=== PATIENT | male | born 1980 | race Caucasian/White ===

== ENCOUNTER 2020-02-20 13:03 | Emergency (ER) | payer MEDICARE, MEDICAID, SELFPAY ==
[2020-02-20 13:09] VITALS: BP 131/76; PULSE 65; RESP 18; TEMP 36.6; O2SAT 100; BMI 21.7
--- NOTE | 2020-02-20 13:28 | CT_ITS ---
WS: [id number] CT ABDOMEN AND PELVIS NONCONTRAST HISTORY: R sided abdominal pain; dysuria TECHNIQUE: Imaging performed through the abdomen and pelvis. Coronal and sagittal reformats are submi tted. All CT scans at [facility] use at least one of these dose optimization techniques: automated exposure control; mA and/or kV adjustment per patient size (includes targeted exams where d ose is matched to clinical indication); or iterative reconstruction. DLP: 566.75 mGy.cm COMPARISON: 12/10/2015 Lower thorax: Lung bases are clear. No hiatal hernia. Liver: Normal, no mass or intrahepatic dilatation. Gallbladder: Unremarkable. Pancreas: Normal. Spleen: Small granulomata. Adrenal glands: Calcification associated with the RIGHT adrenal gland. Similar to the prior study. Right kidney: Normal size with no stones, masses or atrophy. Left kidney: Normal size with no stones, mass or atrophy. Abdominal aorta and IVC are unremarkable. No free fluid, intraperitoneal air or significant lymphadenopathy. GI tract: Normal appendix. No GI tract obstruction. There are a few diverticula in the distal colon b ut no acute inflammation. Abdominal wall: Intact. Pelvis: Normal. No inguinal hernia or adenopathy. No free fluid. Osseous structures: Mild LEFT convex curvature lumbar spine. CT/CT kidney stone [id number] IMPRESSION: 1. No evidence for appendicitis. 2. No renal stone or obstruction. 3. No inguinal hernia.
--- NOTE | 2020-02-20 13:38 | ED_ITS ---
HPI - Male Genitourinary General: Chief complaint: Urogenital-Male Stated complaint: urination pain Time Seen by Provider: 02/20/20 13:04 PFSH ED PFSH: Family History (Updated 01/04/20 @ 16:58 by Sophie Lynn LPN) Father No problems noted. Mother Diabetes Social History (Updated 01/04/20 @ 16:59 by Sophie Lynn LPN) Smoking and tobacco status: current every day smoker Alcohol intake: current Alcohol intake frequency: 0-2 Drinks per Day Marital status: Single Current occupational status: disabled History of recent travel: No Course Vital Signs: Vital signs: Vital Signs Temperature 97.9 F 02/20/20 13:09 Pulse Rate 60 02/20/20 15:02 Respiratory Rate 14 02/20/20 15:02 Blood Pressure 132/89 02/20/20 15:02 Pulse Oximetry 99 02/20/20 15:02 MDM - Male Lab Data: Labs: Lab Results 02/20/20 02/20/20 02/20/20 Range/Units 13:35 13:35 13:35 WBC 5.9 (4.0-10.0) 10^3/ uL RBC 4.85 (4.1-5.3) 10^6/u L Hgb 14.4 (11.7-16.6) g/dL Hct 43.7 (42.0-52.0) % MCV 90.1 (80-94) fL MCH 29.7 (28.0-34.0) pg MCHC 33.0 (30.0-36.0) g/dL RDW 11.9 L (12.1-15.1) % Plt Count 267 (130-400) 10^3/c mm MPV 9.5 (7.4-10.4) fL Neut % (Auto) 44.2 % Lymph % (Auto) 42.2 % Collin % (Auto) 6.6 % Eos % (Auto) 5.9 % Baso % (Auto) 0.8 % Neut # (Auto) 2.6 (1.8-7.7) 10^3/u L Lymph # (Auto) 2.5 (0.8-4.8) 10^3/u L Collin # (Auto) 0.4 (0.2-0.9) 10^3/u L Eos # (Auto) 0.4 (0.0-0.8) 10^3/u L Baso # (Auto) 0.1 (0.0-0.1) 10^3/u L Nucleated RBC % (a uto) 0 % Nucleated RBCs # 0.0 /100WBC Sodium 138 (136-145) mmol/L Potassium 3.9 (3.5-5.1) mmol/L Chloride 98 (98-107) mmol/L Carbon Dioxide 30 H (22-29) mmol/L Anion Gap 13.9 (5-19) BUN 9 (6-20) mg/dL Creatinine 1.0 (0.7-1.2) mg/dL GFR Calculation 83.6 L (90-130) mL/min Glucose 117 H (65-115) mg/dL Calculated Osmolal ity 283 L (285-295) mOsm/k g Calcium 10.4 (8.5-10.5) mg/dL Total Bilirubin 0.2 (0.15-1.2) mg/dL AST 17 (0-40) U/L ALT 11 (0-41) U/L Alkaline Phosphata se 74 (40-130) IU/L Total Protein 8.1 (6.6-8.7) g/dL Albumin 4.6 (3.5-5.2) g/dL Globulin 3.5 (1.3-4.6) g/dL Urine Color Yellow (Yellow) Urine Appearance Clear (CLEAR) Urine pH 7 (5-7) Ur Specific Gravit y 1.010 (1.005-1.030) Urine Protein Neg (Negative) Urine Glucose (UA) Norm (Normal) Urine Ketones Negative (Negative) Urine Blood Neg (Negative) Urine Nitrate Negative (Negative) Urine Bilirubin Neg (NEGATIVE) Urine Urobilinogen Norm (Negative) mg/dL Ur Leukocyte Sivan ase Negative (Negative) Imaging Data: CT ab/pel renal: Radiologist's impression: [address] [address] [address] Scan Report Signed Patient: Hussein Kim Unit #: [id number] : 1980 Age/Sex: 39 / M ADM Date: 02/20/20 Loc: ER Room/Bed: Attending Dr: Ordering Provider/Ordering MD: Oralia Castaneda Date of Service: 02/20/20 Procedure(s): CT kidney stone [id number] Accession Number(s): [id number] Report Number: [id number] WS: [id number] CT ABDOMEN AND PELVIS NONCONTRAST HISTORY: R sided abdominal pain; dysuria TECHNIQUE: Imaging performed through the abdomen and pelvis. Coronal and sagittal reformats are submitted. All CT scans at [facility] use at least one of these dose optimization techniques: automated exposure control; mA and/or kV adjustment per patient size (includes targeted exams where dose is matched to clinical indication); or iterative reconstruction. DLP: 566.75 mGy.cm COMPARISON: 12/10/2015 Lower thorax: Lung bases are clear. No hiatal hernia. Liver: Normal, no mass or intrahepatic dilatation. Gallbladder: Unremarkable. Pancreas: Normal. Spleen: Small granulomata. Adrenal glands: Calcification associated with the RIGHT adrenal gland. Similar to the prior study. Right kidney: Normal size with no stones, masses or atrophy. Left kidney: Normal size with no stones, mass or atrophy. Abdominal aorta and IVC are unremarkable. No free fluid, intraperitoneal air or significant lymphadenopathy. GI tract: Normal appendix. No GI tract obstruction. There are a few diverticula in the distal colon but no acute inflammation. Abdominal wall: Intact. Pelvis: Normal. No inguinal hernia or adenopathy. No free fluid. Osseous structures: Mild LEFT convex curvature lumbar spine. CT/CT kidney stone [id number] IMPRESSION: 1. No evidence for appendicitis. 2. No renal stone or obstruction. 3. No inguinal hernia. Dictated By: Verito Neely DO Signed By: Verito Neely DO Signed Date/Time: 02/20/20 1403 DD/ 1358 Discharge Plan Discharge Patient Disposition: Home, Self-Care Clinical Impression: Right-sided abdominal pain of unknown cause Condition: Stable Prescriptions: New tramadol 50 mg tablet 50 mg PO Q6H PRN (Reason: pain) Qty: 14 RF: 0 No Action ropinirole 1 mg Tablet 1 mg PO TID RF: 0 Celexa 40 mg Tablet 40 mg PO DAILY RF: 0 ibuprofen 800 mg Tablet 800 mg PO TID PRN (Reason: unknown) RF: 0 Flomax 0.4 mg Capsule 0.4 mg PO DAILY RF: 0 buspirone 15 mg Tablet 15 mg PO BID RF: 0 testosterone 1.62 % (20.25 mg/1.25 gram) Gel In Packet See Rx Instructions .ROUTE .COMPLEX RF: 0 Discharge Orders: Discharge Order (Routine); Ordered 02/20/20 Ordered By: Oralia Castaneda Referrals: Shiela,Sebastian, LAUNDRY TECHNICIAN [Primary Care Provider] - Discharge Diet: Usual diet Discharge Activity: Increase activity as tolerated Patient Instructions: Tramadol (By mouth), Abdominal Pain (ED) Discharge Date/Time: 02/20/20 15:38 Coding Level of Care Code ED Certified Meeting Professional for Ben Mcclure
[2020-02-20 13:47] LABS: Add Urine Microscopic? NO
[2020-02-20 13:49] LABS: Basophils # 0.1 10^3/uL (0.0-0.1); Basophils % 0.8 %; Eosinophils # 0.4 10^3/uL (0.0-0.8); Eosinophils % 5.9 %; Hematocrit 43.7 % (42.0-52.0); Hemoglobin 14.4 g/dL (11.7-16.6); Lymphocytes # 2.5 10^3/uL (0.8-4.8); Lymphocytes % 42.2 %; Mean Corpuscular Hemoglobin 29.7 pg (28.0-34.0); Mean Corpuscular Volume 90.1 fL (80-94); Mean Platelet Volume 9.5 fL (7.4-10.4); Monocytes # 0.4 10^3/uL (0.2-0.9); Monocytes % 6.6 %; Neutrophils # 2.6 10^3/uL (1.8-7.7); Neutrophils % 44.2 %; Nucleated Red Blood Cells % 0 %; Platelet Count 267 10^3/cmm (130-400); Red Blood Count 4.85 10^6/uL (4.1-5.3); Red Cell Distribution Width 11.9 % (12.1-15.1); White Blood Count 5.9 10^3/uL (4.0-10.0)
[2020-02-20 13:59] LABS: Alanine Aminotransferase 11 U/L (0-41); Albumin Level 4.6 g/dL (3.5-5.2); Alkaline Phosphatase 74 IU/L (40-130); Anion Gap 13.9 (5-19); Aspartate Amino Transferase 17 U/L (0-40); Blood Urea Nitrogen 9 mg/dL (6-20); Calcium 10.4 mg/dL (8.5-10.5); Carbon Dioxide 30 mmol/L (22-29); Chloride 98 mmol/L (98-107); Globulin 3.5 g/dL (1.3-4.6); Glomerular Filtration Rate 83.6 mL/min (90-130); Glucose 117 mg/dL (65-115); Osmolality Calculated 283 mOsm/kg (285-295); Potassium 3.9 mmol/L (3.5-5.1); Sodium 138 mmol/L (136-145); Total Bilirubin 0.2 mg/dL (0.15-1.2); Total Protein 8.1 g/dL (6.6-8.7)
[2020-02-20 14:37] LABS: Urine Appearance Clear (CLEAR); Urine Color Yellow (Yellow)
[2020-02-20 14:38] LABS: Bilirubin Urine Neg (NEGATIVE); Blood Urine Neg (Negative); Glucose Urine UA Norm (Normal); Ketones Urine Negative (Negative); Leukocyte Esterase Urine Negative (Negative); Nitrate Urine Negative (Negative); Protein Urine Neg (Negative); Urobilinogen Urine Norm (Negative); pH Urine 7 (5-7)
[2020-02-20 14:59] VITALS: RESP 14
[2020-02-20] MEDS: morphine 4 mg/mL SDV 1 mL IM (14:59)
[2020-02-20] MEDS: ondansetron 2 mg/ML SDV 2 mL 4 MG IM (15:00)
[2020-02-20 15:02] VITALS: BP 132/89; PULSE 60; RESP 14; O2SAT 99
--- NOTE | 2020-02-20 16:14 | ED_ITS ---
HPI - Abdominal Pain General: Chief Complaint: Urogenital-Male Stated Complaint: urination pain Time Seen by Provider: 02/20/20 13:04 Source: patient Mode of arrival: ambulatory Limitations: no limitations History of Present Illness: HPI narrative: Patient is a 39-year-old male with a history of Klinefelter syndrome here for complaints of right-sided lower abdominal pain as well as painful urination over the past few days. Patient states he has an extensive history of kidney and ureter stones requiring 5 separate surgeries. Patient has not been vomiting. He reports normal bowel movements. He has not been running fevers. MD elicited complaint: abdominal pain Pertinent past history: kidney stones Onset (ago): day(s) Pain Consistency: constant Location: RLQ Radiation: none Migration to: no migration Exacerbating factors: other (urinating ) Relieving factors: nothing Associated Symptoms: Reports no associated symptoms and dysuria; Denies chills, diarrhea, fever(s), heartburn, hematuria, nausea, syncope and vomiting Review of Systems General: Reports: 10 or more systems reviewed and unremarkable except in HPI and below Const: Denies: fever, chills, body aches, fatigue or malaise Eyes: Denies: change in vision or blurry vision Card: Denies: chest pain, palpitations, irregular heart rhythm, lightheadedness, syncope or shortness of breath on exertion Resp: Denies: shortness of breath, productive cough or pain on inspiration GI: Reports: abdominal pain; Denies: nausea, vomiting, heartburn/indigestion or diarrhea : Reports: painful urination and other (bilateral testicles removed); Denies: flank pain, difficulty urinating, urinary frequency, urinary urgency, urinary hesitancy, urinary dribbling, difficulty starting urination, change in urine stream, decreased urine ouput, urinary incontinence, blood in urine, genital lesion or penile discharge Musc: Denies: neck pain, back pain or joint pain Skin/Breast: Denies: rash PFSH ED PFSH: Family History (Updated 01/04/20 @ 16:58 by Sophie Lynn LPN) Father No problems noted. Mother Diabetes Social History (Updated 01/04/20 @ 16:59 by Sophie Lynn LPN) Smoking and tobacco status: current every day smoker Alcohol intake: current Alcohol intake frequency: 0-2 Drinks per Day Marital status: Single Current occupational status: disabled History of recent travel: No Physical Exam Const: COMMON NORMALS: no apparent distress, average body habitus, oriented x3, no limitations, healthy appearing, alert and well nourished Resp: COMMON NORMALS: normal respiratory effort and clear to auscultation bilaterally AUSCULTATION: clear to auscultation bilaterally Cardio: COMMON NORMALS: regular rate and regular rhythm RATE: regular rate RHYTHM: regular rhythm GI: COMMON NORMALS: normal to inspection, nondistended, normoactive bowel sounds, soft to palpation, no hepatosplenomegaly and no masses PALPATION: Yes soft, Yes tender Details: LLQ and RLQ and Yes no hepatosplenomegaly : COMMON NORMALS: Yes no CVA tenderness BLADDER/KIDNEY EXAM: Yes no CVA tenderness Back/Pelvis: COMMON NORMALS: no CVA tenderness Neuro: COMMON NORMALS: oriented x3 SENSORIUM/ORIENTATION: Yes alert Skin: COMMON NORMALS: no rashes or lesions noted GENERAL SKIN EXAM: no rashes or lesions noted Course Vital Signs: Vital signs: Vital Signs Temperature 97.9 F 02/20/20 13:09 Pulse Rate 60 02/20/20 15:02 Respiratory Rate 14 02/20/20 15:02 Blood Pressure 132/89 02/20/20 15:02 Pulse Oximetry 99 02/20/20 15:02 MDM - Abdominal Pain MDM Narrative: Medical decision making narrative: Patient has no evidence for a ureter stone or other abnormalities in his lower abdomen on CT findings. Patient's UA is clean. Remainder of labs are non-concerning at this time. Patient's vitals are perfect. His pain has improved with medications given here. We will treat patient's pain at home and recommend he follow-up with PCP. Return to ED precautions given. Lab Data: Labs: Lab Results 02/20/20 02/20/20 02/20/20 Range/Units 13:35 13:35 13:35 WBC 5.9 (4.0-10.0) 10^3/ uL RBC 4.85 (4.1-5.3) 10^6/u L Hgb 14.4 (11.7-16.6) g/dL Hct 43.7 (42.0-52.0) % MCV 90.1 (80-94) fL MCH 29.7 (28.0-34.0) pg MCHC 33.0 (30.0-36.0) g/dL RDW 11.9 L (12.1-15.1) % Plt Count 267 (130-400) 10^3/c mm MPV 9.5 (7.4-10.4) fL Neut % (Auto) 44.2 % Lymph % (Auto) 42.2 % Aurora % (Auto) 6.6 % Eos % (Auto) 5.9 % Baso % (Auto) 0.8 % Neut # (Auto) 2.6 (1.8-7.7) 10^3/u L Lymph # (Auto) 2.5 (0.8-4.8) 10^3/u L Aurora # (Auto) 0.4 (0.2-0.9) 10^3/u L Eos # (Auto) 0.4 (0.0-0.8) 10^3/u L Baso # (Auto) 0.1 (0.0-0.1) 10^3/u L Nucleated RBC % (a uto) 0 % Nucleated RBCs # 0.0 /100WBC Sodium 138 (136-145) mmol/L Potassium 3.9 (3.5-5.1) mmol/L Chloride 98 (98-107) mmol/L Carbon Dioxide 30 H (22-29) mmol/L Anion Gap 13.9 (5-19) BUN 9 (6-20) mg/dL Creatinine 1.0 (0.7-1.2) mg/dL GFR Calculation 83.6 L (90-130) mL/min Glucose 117 H (65-115) mg/dL Calculated Osmolal ity 283 L (285-295) mOsm/k g Calcium 10.4 (8.5-10.5) mg/dL Total Bilirubin 0.2 (0.15-1.2) mg/dL AST 17 (0-40) U/L ALT 11 (0-41) U/L Alkaline Phosphata se 74 (40-130) IU/L Total Protein 8.1 (6.6-8.7) g/dL Albumin 4.6 (3.5-5.2) g/dL Globulin 3.5 (1.3-4.6) g/dL Urine Color Yellow (Yellow) Urine Appearance Clear (CLEAR) Urine pH 7 (5-7) Ur Specific Gravit y 1.010 (1.005-1.030) Urine Protein Neg (Negative) Urine Glucose (UA) Norm (Normal) Urine Ketones Negative (Negative) Urine Blood Neg (Negative) Urine Nitrate Negative (Negative) Urine Bilirubin Neg (NEGATIVE) Urine Urobilinogen Norm (Negative) mg/dL Ur Leukocyte Sivan ase Negative (Negative) Imaging Data ^: CT ab/pel renal: Radiologist's impression: [address] [address] [address] Scan Report Signed Patient: Hussein Kim Unit #: [id number] : 1980 Age/Sex: 39 / M ADM Date: 02/20/20 Loc: ER Room/Bed: Attending Dr: Ordering Provider/Ordering MD: Oralia Castaneda Date of Service: 02/20/20 Procedure(s): CT kidney stone [id number] Accession Number(s): [id number] Report Number: [id number] WS: [id number] CT ABDOMEN AND PELVIS NONCONTRAST HISTORY: R sided abdominal pain; dysuria TECHNIQUE: Imaging performed through the abdomen and pelvis. Coronal and sagittal reformats are submitted. All CT scans at [facility] use at least one of these dose optimization techniques: automated exposure control; mA and/or kV adjustment per patient size (includes targeted exams where dose is matched to clinical indication); or iterative reconstruction. DLP: 566.75 mGy.cm COMPARISON: 12/10/2015 Lower thorax: Lung bases are clear. No hiatal hernia. Liver: Normal, no mass or intrahepatic dilatation. Gallbladder: Unremarkable. Pancreas: Normal. Spleen: Small granulomata. Adrenal glands: Calcification associated with the RIGHT adrenal gland. Similar to the prior study. Right kidney: Normal size with no stones, masses or atrophy. Left kidney: Normal size with no stones, mass or atrophy. Abdominal aorta and IVC are unremarkable. No free fluid, intraperitoneal air or significant lymphadenopathy. GI tract: Normal appendix. No GI tract obstruction. There are a few diverticula in the distal colon but no acute inflammation. Abdominal wall: Intact. Pelvis: Normal. No inguinal hernia or adenopathy. No free fluid. Osseous structures: Mild LEFT convex curvature lumbar spine. CT/CT kidney stone [id number] IMPRESSION: 1. No evidence for appendicitis. 2. No renal stone or obstruction. 3. No inguinal hernia. Dictated By: Verito Neely DO Signed By: Verito Neely DO Signed Date/Time: 02/20/20 1403 DD/ 1358 Discharge Plan Discharge Patient Disposition: Home, Self-Care Clinical Impression: Right-sided abdominal pain of unknown cause Condition: Stable Prescriptions: New tramadol 50 mg tablet 50 mg PO Q6H PRN (Reason: pain) Qty: 14 RF: 0 No Action ropinirole 1 mg Tablet 1 mg PO TID RF: 0 Celexa 40 mg Tablet 40 mg PO DAILY RF: 0 ibuprofen 800 mg Tablet 800 mg PO TID PRN (Reason: unknown) RF: 0 Flomax 0.4 mg Capsule 0.4 mg PO DAILY RF: 0 buspirone 15 mg Tablet 15 mg PO BID RF: 0 testosterone 1.62 % (20.25 mg/1.25 gram) Gel In Packet See Rx Instructions .ROUTE .COMPLEX RF: 0 Discharge Orders: Discharge Order (Routine); Ordered 02/20/20 Ordered By: Oralia Castaneda Referrals: Romulo Kuo CEMENT CAR DUMPER [Primary Care Provider] - Discharge Diet: Usual diet Discharge Activity: Increase activity as tolerated Patient Instructions: Tramadol (By mouth), Abdominal Pain (ED) Discharge Date/Time: 02/20/20 15:38 Coding Level of Care Code ED General Internist And Physician Leader for Chg Fwd Exam Detailed
== END 2020-02-20 15:38 | disposition home or self-care (01) ==
PROVIDERS: Emergency Provider Physician Assistant; Family Provider Nurse Practitioner Family; PCP Nurse Practitioner Family
DX: R10.31 Right lower quadrant pain (principal); Z83.3 Family history of diabetes mellitus; F17.210 Nicotine dependence, cigarettes, uncomplicated
CPT/HCPCS: 12345; 36415; 74176; 80053; 81003; 85025; 96372; 99281; 99283; J2270; J2405

== ENCOUNTER 2020-05-29 18:02 | Emergency (ER) | payer MEDICAID, SELFPAY ==
[2020-05-29 18:09] VITALS: BP 120/82; PULSE 74; RESP 16; TEMP 36.4; O2SAT 99; BMI 22.1
--- NOTE | 2020-05-29 19:38 | W.ED.SKABFB ---
HPI - Skin/Abscess/Foreign Bdy General: Chief complaint: Skin/Abscess/Foreign Body Stated complaint: groin abscess Time Seen by Provider: 05/29/20 19:29 History of Present Illness: HPI narrative: Patient comes to the ED with possible abscess in left groin. Approximately 3 days ago patient noticed having a small red bump on left side of groin with a nicole. He says nicole went away and then over the last couple days is just gotten tender and more red and swollen. He has used warm compresses to help abscess but it has not improved. He rates the pain about a 2 out of 10 when it is not being touched but when abscess area has been touched it is an 8 out of 10. Denies any fevers, chills, genital lesions, genital discharge, hematuria, dysuria, diarrhea, constipation, blood in stool, abdominal pain. Associated symptoms: Deny chills, fever(s), nausea or vomiting Review of Systems Const: Denies: fever(s), chills or fatigue Eyes: Denies: change in vision or eye discomfort ENMT: Denies: throat pain, odynophagia, nasal discharge or nasal congestion Card: Denies: chest pain, palpitations, edema, swelling of feet/ankles, dyspnea on exertion or orthopnea Resp: Denies: dyspnea, productive cough or non-productive cough GI: Denies: abdominal pain, nausea, vomiting, diarrhea, constipation or hematochezia : Denies: flank pain, difficulty urinating, dysuria or hematuria Musc: Denies: neck pain, back pain or extremity swelling Skin/Breast: Reports: new lesions (possible abscess on left groin); Denies: rash Neuro: Denies: headache(s), numbness in extremities or weakness in extremities PFS ED PFSH: Medical History Hypogonadism Family History Father No problems noted. Mother Diabetes Social History Smoking and tobacco status: current every day smoker Alcohol intake: current Alcohol intake frequency: 0-2 Drinks per Day Substance/Drug Use: current Substance/Drug use frequency: daily Substance/Drug use type: Marijuana Marital status: Single Current occupational status: disabled History of recent travel: No Physical Exam Const: COMMON NORMALS: no acute distress, patient oriented x3, healthy appearing and alert GENERAL APPEARANCE: cooperative and comfortable HENMT: COMMON NORMALS: normocephalic HEAD & SCALP: normocephalic MOUTH: Normal oral and palatal mucosa present THROAT: posterior oropharynx normal and uvula midline Neck/C-Spine: COMMON NORMALS: supple GENERAL: Yes normal visual inspection Resp: COMMON NORMALS: normal respiratory effort, No retractions, No use of accessory muscles and clear to auscultation bilaterally AUSCULTATION: clear to auscultation bilaterally Cardio: COMMON NORMALS: regular rate, regular rhythm, S1 normal heart sound present, S2 normal heart sound present, No gallops present (Cardio), No clicks present (Cardio), No murmurs present (Cardio) and Peripheral pulses 2+ throughout RATE: regular rate RHYTHM: regular rhythm HEART SOUNDS: S1 normal heart sound present and S2 normal heart sound present PERIPHERAL PULSES: Peripheral pulses 2+ throughout GI: COMMON NORMALS: Normal to inspection, nondistended, normoactive bowel sounds present, Soft to palpation, non-tender and no masses PALPATION: Yes Soft to palpation : COMMON NORMALS: Yes no CVA tenderness BLADDER/KIDNEY EXAM: Yes no CVA tenderness Back/Pelvis: COMMON NORMALS: no CVA tenderness Neuro: COMMON NORMALS: patient oriented x3 and moves all extremities SENSORIUM/ORIENTATION: Yes alert Skin: NARRATIVE SKIN EXAM: Patient has 1 cm abscess that is tender and fluctuant upon palpation. It has erythema and warmth. Bedside ultrasound was performed and pocket of fluid to drain was identified. Procedures Abscess I/D Site: lower extremity (Left groin.) Side (if applicable): left Sedation/analgesia: none Local Anesthetic: lidocaine 1% and with epi Amount of anesthesia used (mL): 10 Technique: incised with #11 blade Amount of fluid expressed (mL): 2 (Purulent drainage) Irrigation: No Packing used?: none Course Vital Signs: Vital signs: Vital Signs Temperature 97.6 F 05/29/20 18:09 Pulse Rate 74 05/29/20 18:09 Respiratory Rate 16 05/29/20 18:09 Blood Pressure 120/82 05/29/20 18:09 Pulse Oximetry 99 05/29/20 18:09 MDM - Skin/Abscess/Foreign Bdy MDM Narrative: Medical decision making narrative: Patient is a 39-year-old male comes to the ED with an abscess in the left groin. Physical exam showed a fluctuant 1 cm abscess that is tender upon palpation and has erythema and warmth. 1% lidocaine with epi used as local. Abscess was incised and drained with approximately 2 mL of purulent drainage removed and culture of purulent drainage was sent to lab. Patient given a dose of clindamycin while here on the unit and sent home with a prescription for clindamycin. He was told to follow-up with his PCP in 5 to 7 days for reevaluation. Return to ED if symptoms worsen. Patient understood and agreed with plan. Discharge Plan Discharge Patient Disposition: Home, Self-Care Clinical Impression: Abscess Condition: Stable Prescriptions: New clindamycin HCl 150 mg capsule 300 mg PO QID 7 Days Qty: 56 RF: 0 No Action Celexa 40 mg tablet 40 mg PO DAILY Qty: 30 RF: 3 ropinirole 1 mg Tablet 1 mg PO TID RF: 0 ibuprofen 800 mg Tablet 800 mg PO TID PRN (Reason: unknown) RF: 0 tamsulosin [Flomax] 0.4 mg Capsule 0.4 mg PO DAILY RF: 0 buspirone 15 mg Tablet 15 mg PO BID RF: 0 testosterone 1.62 % (20.25 mg/1.25 gram) Gel In Packet See Rx Instructions .ROUTE .COMPLEX RF: 0 Discharge Orders: Discharge Order (Routine); Ordered 05/29/20 Ordered By: Bo Cordoba Referrals: Shiela Sebastian APN [Primary Care Provider] - Discharge Diet: Regular Discharge Activity: Resume usual activity Patient Instructions: Abscess Incision and Drainage (ED), Abscess (ED) Activity Restrictions/Additional Instructions: Follow-up with medical provider as directed in 5-7 days. Take medications as prescribed. Return to the ER or your medical provider if condition worsens. Please read and understand discharge instructions. If any questions, please ask. Discharge Date/Time: 05/29/20 21:28 Coding Level of Care Code ED Mental Health Case Manager for Ben Fwryder Exam Comprehensive
[2020-05-29] MEDS: HYDROcodone-acetaminophen 7.5-325 mg Tablet 1 TAB PO (20:21)
[2020-05-29] MEDS: clindamycin 150 mg Capsule 300 MG PO (21:21)
== END 2020-05-29 21:28 | disposition home or self-care (01) ==
PROVIDERS: Emergency Provider Physician Assistant; PCP Nurse Practitioner Family
DX: L02.214 Cutaneous abscess of groin (principal); F17.210 Nicotine dependence, cigarettes, uncomplicated
CPT/HCPCS: 10060; 12345; 87070; 87075; 87205; 99282; 99283

== ENCOUNTER → 2020-06-06 15:37 | Outpatient (BNVA) | payer MEDICARE, SELFPAY | PROVIDERS: PCP Nurse Practitioner Family; Visit Provider Internal Medicine | DX: Z90.79 Acquired absence of other genital organ(s) (principal); Z09 Encounter for follow-up examination after completed treatment for conditions other than malignant neoplasm; Q98.0 Klinefelter syndrome karyotype 47, XXY | CPT/HCPCS: 84403 ==

== ENCOUNTER 2020-07-24 15:18 | Emergency (ER) | payer MEDICARE, MEDICAID, SELFPAY ==
[2020-07-24 15:26] VITALS: BP 132/77; PULSE 67; RESP 16; TEMP 36.4; O2SAT 98; BMI 22.8
--- NOTE | 2020-07-24 15:51 | W.ED.ABDPA2 ---
HPI - Abdominal Pain General: Chief Complaint: Abdominal Pain Stated Complaint: abd pain Time Seen by Provider: 07/24/20 15:32 History of Present Illness: HPI narrative: 39-year-old male presents complaining of 4 days of abdominal pain. He was seen previously in April for similar symptoms and had MRI that was negative. He has a history of nephrolithiasis he is not had any hematuria. He had 1 or 2 episodes of loose stools. Is not had any hematuria has not had any hematemesis coffee-ground emesis denies any respiratory symptoms or fever. MD elicited complaint: abdominal pain Pertinent past history: none Onset (ago): day(s) (4) Pain Consistency: intermittent Location: RLQ Severity: mild Quality: cramping Radiation: none Migration to: no migration Exacerbating factors: nothing Relieving factors: nothing Associated Symptoms: Reports GI cramping; Denies anorexia, belching, bloating, change in bowel habits, change in stool character, chills, coffee ground emesis, constipation, diarrhea, dyspepsia, dysuria, excessive flatus, fever(s), heartburn, hematochezia, hematuria, hematemesis, fecal incontinence, loose stools, melena, nausea, poor appetite and vomiting Treatments prior to arrival: other Review of Systems Const: Denies: fever(s) or chills ENMT: Denies: throat pain, ear or mastoid pain, nasal discharge or nasal congestion Card: Denies: chest pain, edema, dyspnea on exertion or orthopnea Resp: Denies: dyspnea, productive cough or non-productive cough GI: Reports: GI cramping; Denies: nausea, vomiting, hematemesis, coffee ground emesis, heartburn, diarrhea, constipation, bloating, belching, excessive flatus, fecal incontinence, change in bowel habits, change in stool character, hematochezia or melena : Denies: dysuria or hematuria Skin/Breast: Denies: rash or pruritus PFSH ED PFSH: Surgical History (Updated 06/07/20 @ 13:06 by Josiah Schreiber MD) History of orchiectomy, bilateral Family History Father No problems noted. Mother Diabetes Social History (Updated 07/24/20 @ 15:31 by Nikolai Elian, RN) Smoking and tobacco status: current every day smoker Alcohol intake: current Alcohol intake frequency: few times a month Substance/Drug Use: current Substance/Drug use frequency: daily Substance/Drug use type: Marijuana Marital status: Single Current occupational status: disabled History of recent travel: No Physical Exam Const: COMMON NORMALS: no acute distress GENERAL APPEARANCE: cooperative and comfortable ORIENTATION/CONSCIOUSNESS: Yes awake, Yes oriented to person, Yes oriented to place and Yes oriented to time HENMT: COMMON NORMALS: normocephalic, atraumatic and hearing grossly normal bilaterally HEAD & SCALP: normocephalic and atraumatic Eye: COMMON NORMALS: Equal, round and reactive pupils present, EOMs intact bilaterally, conjunctivae normal and no scleral icterus CONJUNCTIVA: Yes conjunctivae normal PUPIL: Yes Equal, round and reactive pupils present Neck/C-Spine: COMMON NORMALS: full ROM, no lymphadenopathy, supple and no JVD Lymph: LYMPHATIC: no lymphadenopathy noted and no lymphedema noted Resp: COMMON NORMALS: normal respiratory effort, No retractions, No use of accessory muscles and clear to auscultation bilaterally AUSCULTATION: clear to auscultation bilaterally Cardio: COMMON NORMALS: no JVD, regular rate, regular rhythm and No murmurs present (Cardio) RATE: regular rate RHYTHM: regular rhythm GI: COMMON NORMALS: Soft to palpation and No hepatosplenomegaly present AUSCULTATION: Yes normoactive bowel sounds PALPATION: Yes Soft to palpation, No Tenderness to palpation present (GI), No Guarding due to palpation present (GI) and Yes No hepatosplenomegaly present Extremity: COMMON NORMALS: normal to inspection, capillary refill normal, no clubbing, cyanosis or edema, no calf tenderness and no pedal edema Neuro: SENSORIUM/ORIENTATION: Yes oriented to person, Yes oriented to place and Yes oriented to time Skin: COMMON NORMALS: no rashes or lesions noted GENERAL SKIN EXAM: no rashes or lesions noted Course Vital Signs: Vital signs: Vital Signs Temperature 97.5 F L 07/24/20 15:26 Pulse Rate 67 07/24/20 15:26 Respiratory Rate 16 07/24/20 15:26 Blood Pressure 132/77 07/24/20 15:26 Pulse Oximetry 98 07/24/20 15:26 MDM - Abdominal Pain MDM Narrative: Medical decision making narrative: White count is normal his exam is very benign. Remainder of his labs are unremarkable. Clear liquid diet 24 to 40 hours advance as tolerates have recurrence or changes symptoms return. Lab Data: Labs: Lab Results 07/24/20 07/24/20 07/24/20 Range/Units 15:17 15:47 15:47 WBC 7.8 (4.0-10.0) 10^3/ uL RBC 4.70 (4.1-5.3) 10^6/u L Hgb 14.0 (11.7-16.6) g/dL Hct 42.4 (42.0-52.0) % MCV 90.2 (80-94) fL MCH 29.8 (28.0-34.0) pg MCHC 33.0 (30.0-36.0) g/dL RDW 11.9 L (12.1-15.1) % Plt Count 265 (130-400) 10^3/c mm MPV 9.5 (7.4-10.4) fL Neut % (Auto) 50.2 % Lymph % (Auto) 38.0 % [place] % (Auto) 6.4 % Eos % (Auto) 4.8 % Baso % (Auto) 0.5 % Neut # (Auto) 3.89 (1.8-7.7) 10^3/u L Lymph # (Auto) 3.0 (0.8-4.8) 10^3/u L [place] # (Auto) 0.5 (0.2-0.9) 10^3/u L Eos # (Auto) 0.4 (0.0-0.8) 10^3/u L Baso # (Auto) 0.0 (0.0-0.1) 10^3/u L Nucleated RBC % (a uto) 0 % Nucleated RBCs # 0.0 /100WBC Sodium 139 (136-145) mmol/L Potassium 4.2 (3.5-5.1) mmol/L Chloride 102 (98-107) mmol/L Carbon Dioxide 28 (22-29) mmol/L Anion Gap 13.2 (5-19) BUN 12 (6-20) mg/dL Creatinine 0.9 (0.7-1.2) mg/dL GFR Calculation 94.4 (90-130) mL/min Glucose 91 (65-115) mg/dL Calculated Osmolal ity 284 L (285-295) mOsm/k g Calcium 9.6 (8.5-10.5) mg/dL Total Bilirubin 0.3 (0.15-1.2) mg/dL AST 19 (0-40) U/L ALT 13 (0-41) U/L Alkaline Phosphata se 80 (40-130) IU/L Total Protein 7.8 (6.6-8.7) g/dL Albumin 4.4 (3.5-5.2) g/dL Globulin 3.4 (1.3-4.6) g/dL Lipase 50 (13-60) U/L Urine Color Yellow (Yellow) Urine Appearance Clear (CLEAR) Urine pH 7 (5-7) Ur Specific Gravit y 1.015 (1.005-1.030) Urine Protein Neg (Negative) Urine Glucose (UA) Norm (Normal) Urine Ketones Negative (Negative) Urine Blood Neg (Negative) Urine Nitrate Negative (Negative) Urine Bilirubin Neg (Negative) Urine Urobilinogen Neg (Negative) mg/dL Ur Leukocyte Sivan ase Negative (Negative) Discharge Plan Discharge Patient Disposition: Home Clinical Impression: Abdominal pain, Klinefelter syndrome karyotype 47, xxy Condition: Stable Prescriptions: No Action Celexa 40 mg tablet 40 mg PO DAILY Qty: 30 RF: 3 ropinirole 1 mg Tablet 1 mg PO TID RF: 0 tamsulosin [Flomax] 0.4 mg Capsule 0.4 mg PO DAILY RF: 0 buspirone 15 mg Tablet 15 mg PO BID RF: 0 testosterone 1.62 % (20.25 mg/1.25 gram) Gel In Packet See Rx Instructions .ROUTE .COMPLEX RF: 0 ibuprofen 800 mg tablet 800 mg PO TID PRN (Reason: unknown) Qty: 90 RF: 8 Discharge Orders: Discharge Order (Routine); Ordered 07/24/20 Ordered By: Andrew Galarza Referrals: Shiela Sebastian APN [Primary Care Provider] - Discharge Diet: Clear Liquid Discharge Activity: Increase activity as tolerated Activity Restrictions/Additional Instructions: Clear liquid diet x48 hours and advance as tolerated. If symptoms worsen return Discharge Date/Time: 07/24/20 16:23 Coding Level of Care Code ED Video Presentation Operator for Ben Mcclure
[2020-07-24 15:52] LABS: Add Urine Microscopic? NO
[2020-07-24 15:55] LABS: Basophils % 0.5 %; Eosinophils # 0.4 10^3/uL (0.0-0.8); Eosinophils % 4.8 %; Hematocrit 42.4 % (42.0-52.0); Mean Corpuscular Hemoglobin 29.8 pg (28.0-34.0); Mean Corpuscular Volume 90.2 fL (80-94); Mean Platelet Volume 9.5 fL (7.4-10.4); Monocytes # 0.5 10^3/uL (0.2-0.9); Monocytes % 6.4 %; Neutrophils # 3.89 10^3/uL (1.8-7.7); Neutrophils % 50.2 %; Nucleated Red Blood Cells % 0 %; Platelet Count 265 10^3/cmm (130-400); Red Cell Distribution Width 11.9 % (12.1-15.1); White Blood Count 7.8 10^3/uL (4.0-10.0)
[2020-07-24 15:59] LABS: Blood Urine Neg (Negative); Glucose Urine UA Norm (Normal); Ketones Urine Negative (Negative); Protein Urine Neg (Negative); Specific Gravity, Urine 1.015 (1.005-1.030); Urine Appearance Clear (CLEAR); Urine Color Yellow (Yellow); pH Urine 7 (5-7)
[2020-07-24 16:00] LABS: Bilirubin Urine Neg (Negative); Leukocyte Esterase Urine Negative (Negative); Nitrate Urine Negative (Negative); Urobilinogen Urine Neg (Negative)
[2020-07-24 16:09] LABS: Alanine Aminotransferase 13 U/L (0-41); Albumin Level 4.4 g/dL (3.5-5.2); Alkaline Phosphatase 80 IU/L (40-130); Aspartate Amino Transferase 19 U/L (0-40); Blood Urea Nitrogen 12 mg/dL (6-20); Calcium 9.6 mg/dL (8.5-10.5); Carbon Dioxide 28 mmol/L (22-29); Chloride 102 mmol/L (98-107); Globulin 3.4 g/dL (1.3-4.6); Glomerular Filtration Rate 94.4 mL/min (90-130); Glucose 91 mg/dL (65-115); Lipase 50 U/L (13-60); Osmolality Calculated 284 mOsm/kg (285-295); Sodium 139 mmol/L (136-145); Total Bilirubin 0.3 mg/dL (0.15-1.2); Total Protein 7.8 g/dL (6.6-8.7)
[2020-07-24 16:13] LABS: Anion Gap 13.2 (5-19)
[2020-07-24 16:14] LABS: Potassium 4.2 mmol/L (3.5-5.1)
[2020-07-24 16:23] VITALS: BP 140/70; PULSE 75; RESP 16; O2SAT 98
== END 2020-07-24 16:23 | disposition home or self-care (01) ==
PROVIDERS: Emergency Provider Family Medicine; PCP Nurse Practitioner Family
DX: R10.9 Unspecified abdominal pain (principal); Q98.0 Klinefelter syndrome karyotype 47, XXY; F17.210 Nicotine dependence, cigarettes, uncomplicated
CPT/HCPCS: 12345; 80053; 81003; 83690; 85025; 99283

== ENCOUNTER 2021-01-08 10:10 | Outpatient (CLI) | payer MEDICARE, MEDICAID, SELFPAY ==
--- NOTE | 2021-01-08 10:22 | US_ITS ---
WS: [id number] BILATERAL DIGITAL DIAGNOSTIC MAMMOGRAM MAMMOGRAPHY WITH CAD CLINICAL INFORMATION: MASTODYNIA;BREAST TENDERNESS HISTORY: COMPARISON: None. TECHNIQUE: Bilateral CC, MLO, and ML views. FINDINGS: Palpable marker left breast. Scattered fibroglandular densities bilaterally. No underlying mammographic abnormalities in the area of palpable concern. Normal-appearing subareolar breast tissue. Ultrasound is pending. ULTRASOUND BREAST LEFT TECHNIQUE: Ultrasound left breast focused area of concern. CLINICAL INFORMATION: MASTODYNIA;BREAST TENDERNESS COMPARISON: None. FINDINGS: Ultrasound breast left. Ultrasound left breast in the area of palpable concern left nipple. Normal sh adowing subareolar breast tissue consistent with gynecomastia. No abnormal cystic or solid lesion tar get for biopsy. No suspicious abnormalities. Comparison views of the left breast are similar in yary bales. US/US breast BI limited* [id number] IMPRESSION: BI-RADS: 2-Benign FOLLOW UP: 1 Year Follow-up
--- NOTE | 2021-01-08 10:31 | MM_ITS ---
WS: [id number] BILATERAL DIGITAL DIAGNOSTIC MAMMOGRAM MAMMOGRAPHY WITH CAD CLINICAL INFORMATION: MASTODYNIA;BREAST TENDERNESS HISTORY: COMPARISON: None. TECHNIQUE: Bilateral CC, MLO, and ML views. FINDINGS: Palpable marker left breast. Scattered fibroglandular densities bilaterally. No underlying mammographic abnormalities in the area of palpable concern. Normal-appearing subareolar breast tissue. Ultrasound is pending. ULTRASOUND BREAST LEFT TECHNIQUE: Ultrasound left breast focused area of concern. CLINICAL INFORMATION: MASTODYNIA;BREAST TENDERNESS COMPARISON: None. FINDINGS: Ultrasound breast left. Ultrasound left breast in the area of palpable concern left nipple. Normal sh adowing subareolar breast tissue consistent with gynecomastia. No abnormal cystic or solid lesion tar get for biopsy. No suspicious abnormalities. Comparison views of the left breast are similar in [place]. MM/[place] [id number] IMPRESSION: BI-RADS: 2-Benign FOLLOW UP: 1 Year Follow-up
== END 2021-01-08 10:11 | disposition home or self-care (01) ==
LOC: RADSHAW 10:15
PROVIDERS: PCP Nurse Practitioner Family; Visit Provider Internal Medicine
DX: N64.4 Mastodynia (principal)
CPT/HCPCS: 76642; 77066

== ENCOUNTER 2021-04-30 17:57 | Emergency (ER) | payer MEDICARE, MEDICAID, SELFPAY ==
[2021-04-30] VITALS (7 sets, daily range): BP systolic 103–136; BP diastolic 67–79; PULSE 51–65; RESP 14–18; TEMP 36.6; O2SAT 96–100; BMI 23.6
[2021-04-30 18:45] LABS: Add Urine Microscopic? NO; Charge for UA Resulting for Rev
--- NOTE | 2021-04-30 18:49 | CTR_ITS ---
PROCEDURE INFORMATION: Exam: CT Abdomen And Pelvis With Contrast Exam date and time: 04/30/2021 6:49 PM Age: 40 years old Clinical indication: Abdominal pain; Localized; Lower; Prior surgery; Surgery type: Colon, testicles; Additional info: Abd pain TECHNIQUE: Imaging protocol: Computed tomography of the abdomen and pelvis with contrast. Radiation optimization: All CT scans at this facility use at least one of these dose optimization techniques: automated exposure control; mA and/or kV adjustment per patient size (includes targeted exams where dose is matched to clinical indication); or iterative reconstruction. Contrast material: OMNI 300; Contrast volume: 95 ml; Contrast route: INTRAVENOUS (IV); COMPARISON: 1. CT abdomen pelvis wo con [id number] 12/10/2015 11:[address] kidney stone [id number] 02/20/2020 1:47 PM RADIATION DOSE METRICS: Total DLP (mGy-cm): 1049.26 FINDINGS: Lungs: Small pulmonary nodules at the lung bases are not significantly changed from 02/20/2020. No further follow-up is necessary. Liver: Normal. No mass. Gallbladder and bile ducts: The gallbladder is normal. Pancreas: The pancreas is normal. Spleen: The spleen demonstrates punctate calcifications, consistent with remote granulomatous organism exposure. Adrenal glands: Nonspecific calcifications in the right adrenal gland not significantly changed. Kidneys and ureters: The kidneys are normal. There is no evidence of hydronephrosis. There is no evidence of renal or ureteral calcifications. Stomach and bowel: There is no evidence of colitis/diverticulitis. Appendix: A normal appendix is identified. Intraperitoneal space: Unremarkable. No free air. No significant fluid collection. Vasculature: Unremarkable. No abdominal aortic aneurysm. Lymph nodes: There is no evidence of lymphadenopathy. Urinary bladder: Unremarkable as visualized. Reproductive: Unremarkable as visualized. Bones/joints: Bone window Soft tissues: Unremarkable. CT/CT abdomen pelvis w con* [id number] IMPRESSION: No acute findings. Radiation Dose CTDIVOL = (mGy): DLP = 1049.26 (mGy-cm)
--- NOTE | 2021-04-30 18:57 | ED_ITS ---
HPI - Abdominal Pain General: Chief Complaint: Abdominal Pain Stated Complaint: Stomach Pain/Pain when Peeing Time Seen by Provider: 04/30/21 18:34 Source: patient Mode of arrival: ambulatory Limitations: no limitations History of Present Illness: HPI narrative: Who is a history of Klinefelter syndrome states been having some suprapubic pain some flank pain over the last 2 days. States pain is sharp in nature and rates an 8 out of 10. He states he is also had a history of kidney stones this feels similar. He has had both of his testicle removed in the past. He has had some dysuria and he states it hurts to defecate as well. Associated Symptoms: Denies chills, diarrhea, dysuria, fever(s), nausea and vomiting Review of Systems Const: Denies: fever(s), chills, body aches or change in appetite Eyes: Denies: blurry vision or eye discomfort ENMT: Denies: throat pain or dental pain Card: Denies: chest pain Resp: Denies: dyspnea GI: Denies: abdominal pain, nausea, vomiting or diarrhea : Denies: dysuria Musc: Denies: neck pain or back pain Skin/Breast: Denies: rash Neuro: Denies: headache(s) Psych: Denies: depression Raffaele/Lymph: Denies: easy bruising All/Imm: Denies: urticaria PFSH ED PFSH: Surgical History History of orchiectomy, bilateral Family History Father No problems noted. Mother Diabetes Social History Smoking and tobacco status: current every day smoker Alcohol intake: current Alcohol intake frequency: few times a month Marital status: Single Current occupational status: disabled History of recent travel: No Physical Exam Const: COMMON NORMALS: no acute distress, patient oriented x3 and healthy appearing HENMT: COMMON NORMALS: normocephalic and atraumatic HEAD & SCALP: normocephalic and atraumatic Eye: COMMON NORMALS: Equal, round and reactive pupils present and EOMs intact bilaterally PUPIL: Yes Equal, round and reactive pupils present Neck/C-Spine: COMMON NORMALS: full ROM and supple Chest: COMMONS NORMALS: normal inspection of the chest and normal palpation of entire chest wall Resp: COMMON NORMALS: normal respiratory effort, No retractions, No use of accessory muscles and clear to auscultation bilaterally AUSCULTATION: clear to auscultation bilaterally Cardio: COMMON NORMALS: regular rate, regular rhythm and No murmurs present (Cardio) RATE: regular rate RHYTHM: regular rhythm GI: COMMON NORMALS: Normal to inspection, nondistended, normoactive bowel sounds present, Soft to palpation, non-tender and no masses PALPATION: Yes Soft to palpation OTHER: Slight suprapubic tenderness : OTHER: no hernia noted he has bilateral testicles removed Extremity: COMMON NORMALS: normal to inspection and full ROM Neuro: COMMON NORMALS: patient oriented x3, moves all extremities and no focal motor deficits Psych: COMMON NORMALS: mental status grossly normal, Normal thought process present and cooperative THOUGHT PROCESS: Normal thought process present Skin: COMMON NORMALS: no rashes or lesions noted and no wounds GENERAL SKIN EXAM: no rashes or lesions noted Course Vital Signs: Vital signs: Vital Signs Temperature 97.9 F 04/30/21 18:06 Pulse Rate 58 L 04/30/21 20:13 Respiratory Rate 14 04/30/21 20:13 Blood Pressure 103/67 04/30/21 20:13 Pulse Oximetry 97 04/30/21 20:13 MDM - Abdominal Pain MDM Narrative: Medical decision making narrative: Patient presents here with abdominal pain. CT scan here is normal. Patient's blood work and urinalysis is normal as well. He has no signs of appendicitis. His abdominal exam at discharge is benign and he is pain-free. He is stable for discharge and is to follow-up his PCP and return if worsening. Lab Data: Labs: Lab Results 04/30/21 04/30/21 04/30/21 Range/Units 18:22 19:20 19:20 WBC 7.1 (4.0-10.0) 10^3/ uL RBC 4.25 (4.1-5.3) 10^6/u L Hgb 12.8 (11.7-16.6) g/dL Hct 39.1 L (42.0-52.0) % MCV 92.0 (80-94) fL MCH 30.1 (28.0-34.0) pg MCHC 32.7 (30.0-36.0) g/dL RDW 12.4 (12.1-15.1) % Plt Count 224 (130-400) 10^3/c mm MPV 9.1 (7.4-10.4) fL Neut % (Auto) 47.3 % Lymph % (Auto) 39.8 % Burnett % (Auto) 7.7 % Eos % (Auto) 4.2 % Baso % (Auto) 0.6 % Neut # (Auto) 3.38 (1.8-7.7) 10^3/u L Lymph # (Auto) 2.8 (0.8-4.8) 10^3/u L Burnett # (Auto) 0.6 (0.2-0.9) 10^3/u L Eos # (Auto) 0.3 (0.0-0.8) 10^3/u L Baso # (Auto) 0.0 (0.0-0.1) 10^3/u L Nucleated RBC % (a uto) 0 % Nucleated RBCs # 0.0 /100WBC Sodium 136 (136-145) mmol/L Potassium 4.0 (3.5-5.1) mmol/L Chloride 101 (98-107) mmol/L Carbon Dioxide 27 (22-29) mmol/L Anion Gap 12.0 (5-19) BUN 10 (6-20) mg/dL Creatinine 0.9 (0.7-1.2) mg/dL GFR Calculation 93.9 (90-130) mL/min Glucose 89 (65-115) mg/dL Calculated Osmolal ity 281 L (285-295) mOsm/k g Calcium 8.5 (8.5-10.5) mg/dL Total Bilirubin 0.2 (0.15-1.2) mg/dL AST 12 (0-40) U/L ALT 6 (0-41) U/L Alkaline Phosphata se 67 (40-130) IU/L Total Protein 6.8 (6.6-8.7) g/dL Albumin 3.9 (3.5-5.2) g/dL Globulin 2.9 (1.3-4.6) g/dL Lipase 43 (13-60) U/L Urine Color Yellow (Yellow) Urine Appearance Clear (CLEAR) Urine pH 5 (5-7) Ur Specific Gravit y 1.030 (1.005-1.030) Urine Protein Neg (Negative) Urine Glucose (UA) Norm (Normal) Urine Ketones Negative (Negative) Urine Blood Neg (Negative) Urine Nitrate Negative (Negative) Urine Bilirubin Neg (Negative) Urine Urobilinogen Norm (Negative) mg/dL Ur Leukocyte Sivan ase Negative (Negative) Imaging Data ^: CT Abd/Pel: Attestation: I personally reviewed and interpreted this imaging study as follo ws: Radiologist's impression: [employer] [address] [place] [id number] Scan Report Signed Patient: Hussein Kim Unit #: [id number] : 1980 Age/Sex: 40 / M ADM Date: 04/30/21 Loc: ER Room/Bed: Attending Dr: Ordering Provider/Ordering MD: Criselda Lira MD Date of Service: 04/30/21 Procedure(s): CT abdomen pelvis w con* [id number] Accession Number(s): [id number] Report Number: [id number] PROCEDURE INFORMATION: Exam: CT Abdomen And Pelvis With Contrast Exam date and time: 04/30/2021 6:49 PM Age: 40 years old Clinical indication: Abdominal pain; Localized; Lower; Prior surgery; Surgery type: Colon, testicles; Additional info: Abd pain TECHNIQUE: Imaging protocol: Computed tomography of the abdomen and pelvis with contrast. Radiation optimization: All CT scans at this facility use at least one of these dose optimization techniques: automated exposure control; mA and/or kV adjustment per patient size (includes targeted exams where dose is matched to clinical indication); or iterative reconstruction. Contrast material: OMNI 300; Contrast volume: 95 ml; Contrast route: INTRAVENOUS (IV); COMPARISON: 1. CT abdomen pelvis wo con [id number] 12/10/2015 11:[address] kidney stone [id number] 02/20/2020 1:47 PM RADIATION DOSE METRICS: Total DLP (mGy-cm): 1049.26 FINDINGS: Lungs: Small pulmonary nodules at the lung bases are not significantly changed from 02/20/2020. No further follow-up is necessary. Liver: Normal. No mass. Gallbladder and bile ducts: The gallbladder is normal. Pancreas: The pancreas is normal. Spleen: The spleen demonstrates punctate calcifications, consistent with remote granulomatous organism exposure. Adrenal glands: Nonspecific calcifications in the right adrenal gland not significantly changed. Kidneys and ureters: The kidneys are normal. There is no evidence of hydronephrosis. There is no evidence of renal or ureteral calcifications. Stomach and bowel: There is no evidence of colitis/diverticulitis. Appendix: A normal appendix is identified. Intraperitoneal space: Unremarkable. No free air. No significant fluid collection. Vasculature: Unremarkable. No abdominal aortic aneurysm. Lymph nodes: There is no evidence of lymphadenopathy. Urinary bladder: Unremarkable as visualized. Reproductive: Unremarkable as visualized. Bones/joints: Bone window Soft tissues: Unremarkable. CT/CT abdomen pelvis w con* [id number] IMPRESSION: No acute findings. Discharge Plan Discharge Patient Disposition: Home Clinical Impression: Abdominal pain Qualifiers: Abdominal location: generalized Qualified Code(s): R10.84 - Generalized abdominal pain Condition: Stable Prescriptions: New hydrocodone-acetaminophen 5-325 mg tablet 1 tab PO Q6H PRN (Reason: pain) Qty: 14 RF: 0 ondansetron 4 mg tablet,disintegrating 4 mg PO Q6H PRN (Reason: nausea and vomiting) Qty: 14 RF: 0 No Action pantoprazole 40 mg tablet,delayed release (DR/EC) 40 mg PO QAM Qty: 90 RF: 3 Celexa 40 mg tablet 40 mg PO DAILY Qty: 30 RF: 3 testosterone [AndroGel] 20.25 mg/1.25 gram (1.62 %) gel in metered-dose pump 1 pump topical .AT BEDTIME Qty: 75 RF: 3 ropinirole 1 mg Tablet 1 mg PO TID RF: 0 buspirone 15 mg Tablet 15 mg PO BID RF: 0 testosterone 1.62 % (20.25 mg/1.25 gram) Gel In Packet See Rx Instructions .ROUTE .COMPLEX RF: 0 ibuprofen 800 mg tablet 800 mg PO TID PRN (Reason: unknown) Qty: 90 RF: 8 tamsulosin [Flomax] 0.4 mg capsule 0.4 mg PO DAILY Qty: 90 RF: 3 Discharge Orders: Discharge ED (Routine); Ordered 04/30/21 Ordered By: Criselda Lira Referrals: Josiah Schreiber MD [Primary Care Provider] - 1-3 days Discharge Diet: Advance as tolerated Discharge Activity: Resume usual activity Patient Instructions: Abdominal Pain (ED), Opioid Safety Coding Level of Care Code ED Violent Crimes Detective for Chg Fwd Exam Comprehensive
[2021-04-30] MEDS: iohexol 300 mg/mL 100 mL Btl IV (19:07)
[2021-04-30] MEDS: ondansetron 2 mg/ML SDV 2 mL 4 MG IVP (19:18)
[2021-04-30] MEDS: HYDROmorphone 1 mg/mL INJ 1 mL IVP ×2 (19:18→20:10)
[2021-04-30 19:24] LABS: Urine Appearance Clear (CLEAR); Urine Color Yellow (Yellow); pH Urine 5 (5-7)
[2021-04-30 19:25] LABS: Bilirubin Urine Neg (Negative); Blood Urine Neg (Negative); Glucose Urine UA Norm (Normal); Ketones Urine Negative (Negative); Leukocyte Esterase Urine Negative (Negative); Nitrate Urine Negative (Negative); Protein Urine Neg (Negative); Urobilinogen Urine Norm (Negative)
[2021-04-30 19:36] LABS: Basophils % 0.6 %; Eosinophils # 0.3 10^3/uL (0.0-0.8); Eosinophils % 4.2 %; Hematocrit 39.1 % (42.0-52.0); Hemoglobin 12.8 g/dL (11.7-16.6); Lymphocytes # 2.8 10^3/uL (0.8-4.8); Lymphocytes % 39.8 %; Mean Corpuscular HGB Conc 32.7 g/dL (30.0-36.0); Mean Corpuscular Hemoglobin 30.1 pg (28.0-34.0); Mean Platelet Volume 9.1 fL (7.4-10.4); Monocytes # 0.6 10^3/uL (0.2-0.9); Monocytes % 7.7 %; Neutrophils # 3.38 10^3/uL (1.8-7.7); Neutrophils % 47.3 %; Nucleated Red Blood Cells % 0 %; Platelet Count 224 10^3/cmm (130-400); Red Blood Count 4.25 10^6/uL (4.1-5.3); Red Cell Distribution Width 12.4 % (12.1-15.1); White Blood Count 7.1 10^3/uL (4.0-10.0)
[2021-04-30 20:03] LABS: Alanine Aminotransferase 6 U/L (0-41); Albumin Level 3.9 g/dL (3.5-5.2); Alkaline Phosphatase 67 IU/L (40-130); Aspartate Amino Transferase 12 U/L (0-40); Blood Urea Nitrogen 10 mg/dL (6-20); Calcium 8.5 mg/dL (8.5-10.5); Carbon Dioxide 27 mmol/L (22-29); Chloride 101 mmol/L (98-107); Globulin 2.9 g/dL (1.3-4.6); Glomerular Filtration Rate 93.9 mL/min (90-130); Glucose 89 mg/dL (65-115); Lipase 43 U/L (13-60); Osmolality Calculated 281 mOsm/kg (285-295); Sodium 136 mmol/L (136-145); Total Bilirubin 0.2 mg/dL (0.15-1.2); Total Protein 6.8 g/dL (6.6-8.7)
== END 2021-04-30 21:14 | disposition home or self-care (01) ==
PROVIDERS: Emergency Provider Emergency Medicine; PCP Internal Medicine
DX: R10.84 Generalized abdominal pain (principal); F17.210 Nicotine dependence, cigarettes, uncomplicated
CPT/HCPCS: 74177; 80053; 81003; 83690; 85025; 96361; 96374; 96376; 99284; J1170; J2405; Q9967

== ENCOUNTER → 2021-05-03 10:48 | Outpatient (BNVA) | payer MEDICARE, MEDICAID, SELFPAY | PROVIDERS: PCP Internal Medicine; Visit Provider Nurse Practitioner Family | DX: R30.0 Dysuria (principal) | CPT/HCPCS: G0103 ==

== ENCOUNTER → 2021-06-24 07:55 | Outpatient (BNVA) | payer MEDICARE, MEDICAID, SELFPAY | PROVIDERS: PCP Internal Medicine; Visit Provider Urology | DX: R30.0 Dysuria (principal); N20.9 Urinary calculus, unspecified | CPT/HCPCS: 81003 ==

== ENCOUNTER 2021-08-13 15:17 | Emergency (ER) | payer MEDICARE, MEDICAID, SELFPAY ==
[2021-08-13 15:27] VITALS: BP 86/49; PULSE 79; RESP 18; TEMP 36.8; O2SAT 98; BMI 22.1
--- NOTE | 2021-08-13 16:35 | ED_ITS ---
HPI - Animal Bite General: Chief Complaint: Animal Bite Stated Complaint: RLE INJURY, N/V, PAIN: BIT BY HOG Time Seen by Provider: 08/13/21 16:35 History of Present Illness: HPI narrative: Mr. Ty is a 40-year-old gentleman with history of Klinefelter syndrome who presents emergency department due to animal related injury. He was at his baseline health and reportedly [place] a farm trying to get a rooster when a dog attacked him. He immediately pain associated with lacerations and abrasions which was moderate in intensity and worse with palpation on the lower extremities. Additionally had nausea vomiting. Unsure of last tetanus. No other new specific changes in health, exacerbating, or alleviating factors. Upon clarification of the attacking animal it reportedly is a farm raised domesticated pig making it low risk for rabies carrying. Review of Systems General: Reports: 10 or more systems reviewed and unremarkable except in HPI and below PFSH ED PFSH: Medical History Dysuria Urolithiasis Surgical History H/O lithotripsy History of orchiectomy, bilateral Family History Father No problems noted. Mother , at ag 70 Diabetes Social History Alcohol intake: current Alcohol intake frequency: few times a month Marital status: Single Current occupational status: disabled History of recent travel: No Physical Exam Narrative: EXAM NARRATIVE: GENERAL/CONSTITUTIONAL - well-appearing. Anxious, uncomfortable Eyes - PERRL, no conjunctival injection ENMT - Atraumatic external nose and ears. Moist mucous membranes NECK - supple. trachea midline CARDIOVASCULAR - regular rate and rhythm. Peripheral pulses 2+ and equal RESPIRATORY -clear to auscultation bilaterally. No retractions or accessory muscle use. ABDOMEN/GI - Nontender/Nondistended. No tenderness to percussion or evidence of peritonitis MSK - Extremities without obvious deformity SKIN -scattered abrasions, 2 large deep abrasions on the thigh, scattered superficial abrasions elsewhere. There is a laceration to the right lower extremity on the calf. Distal CMS intact. NEURO - alert and appropriately oriented. Moves all extremities equally. PSYCH -anxious Procedures Laceration Laceration 1: Site: lower extremity Side (If applicable): right Size (cm): 8 Description: flap and irregular Depth: simple, single layer Local Anesthetic: lidocaine 1% and with epi Amount of anesthesia used (mL): 15 Pre-repair: wound explored, irrigated extensively and deep structures intact Skin layer closed with: nylon Size (cm): 3-0 Number of sutures: 9 Technique: simple, interrupted Course ED course: - Patient was seen and evaluated by me at bedside - Patient placed on cardiac monitors, IV access obtained - Initial evaluation notable for lacerations and abrasions. Abrasions cleaned and only one injury requires intervention. -Tdap updated. Analgesia given - Imaging notable for no radiopaque foreign body or underlying bony injury -Laceration repaired with loose closure, patient tolerated procedure well - Upon serial reexamination after treatment the patient was improved - Based on patient history, evaluation, labs, and imaging as interpreted the most likely cause of the patient's condition is domesticated farm animal attack - The results of ED evaluation were discussed with the patient including prescriptions and/or symptomatic cares (if applicable) including appropriate and responsible use, followup plan, and return precautions. The patient verbalized understanding and felt safe for discharge. - Patient discharged in satisfactory condition. Vital Signs: Vital signs: Vital Signs Temperature 98.2 F 08/13/21 15:27 Pulse Rate 79 08/13/21 15:27 Respiratory Rate 18 08/13/21 15:27 Blood Pressure 102/64 08/13/21 19:13 Pulse Oximetry 98 08/13/21 15:27 MDM - Animal Bite Medical Records: Attestation: I reviewed the patient's medical records. Lab Data: Attestation: I reviewed the patient's lab results. Discharge Plan Discharge Patient Disposition: Home Clinical Impression: Bite by animal, Laceration, Multiple abrasions Condition: Stable Prescriptions: New Augmentin 875-125 mg tablet 1 tab PO BID Qty: 14 RF: 0 oxycodone 5 mg tablet 5 mg PO Q4H PRN (Reason: pain) Qty: 10 RF: 0 No Action pantoprazole 40 mg tablet,delayed release (DR/EC) 40 mg PO QAM Qty: 90 RF: 3 Celexa 40 mg tablet 40 mg PO DAILY Qty: 30 RF: 3 testosterone [AndroGel] 20.25 mg/1.25 gram (1.62 %) gel in metered-dose pump 1 pump topical .AT BEDTIME Qty: 75 RF: 3 ropinirole 1 mg Tablet 1 mg PO TID RF: 0 buspirone 15 mg Tablet 15 mg PO BID RF: 0 ibuprofen 800 mg tablet 800 mg PO TID PRN (Reason: unknown) Qty: 90 RF: 8 tamsulosin [Flomax] 0.4 mg capsule 0.4 mg PO DAILY Qty: 90 RF: 3 ondansetron 4 mg tablet,disintegrating 4 mg PO Q6H PRN (Reason: nausea and vomiting) Qty: 14 RF: 0 Discharge Orders: Discharge ED (Routine); Ordered 08/13/21 Ordered By: Allan Cai Referrals: Josiah Schreiber MD [Primary Care Provider] - Discharge Diet: Usual diet Discharge Activity: Limit activity as instructed Patient Instructions: Animal Bite (ED), Care For Your Stitches (ED), Laceration (ED), Opioid Safety Activity Restrictions/Additional Instructions: Thank you for visiting the emergency department. You were seen and evaluated for animal tach. You had a laceration repaired at bedside with stitches which need to be removed in 10 days. Given the fact that this happened from an animal you will be given a prescription for antibiotics. Please look out for any sign of infection. Please return to the emergency department for any sign of infection or anything else that you are concerned about and feel needs emergency department evaluation. 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
--- NOTE | 2021-08-13 17:01 | XRR_ITS ---
PROCEDURE INFORMATION: Exam: XR Right Tibia and Fibula Exam date and time: 08/13/2021 5:01 PM Age: 40 years old Clinical indication: Pain; Lower leg; Right; Patient HX: Cut on calf area; Additional info: Animal bite TECHNIQUE: Imaging protocol: XR Right tibia and fibula. Views: 2 views. COMPARISON: No relevant prior studies available. FINDINGS: Bones/joints: The bones are intact and in normal alignment. Soft tissues: Soft tissue laceration in the posterior calf. No visible foreign body. XR/XR tibia fibula RT 2V [id number] IMPRESSION: 1. No acute skeletal finding. Radiation Dose CTDIVOL = (mGy): DLP = (mGy-cm)
[2021-08-13] MEDS: tetanus-dipt-pertussis 0.5 mL SDV IM (17:40)
[2021-08-13] MEDS: acetaminophen 500 mg Tablet 1000 MG PO (17:40)
[2021-08-13] MEDS: ketorolac 30 mg/mL INJ 15 MG IM (17:40)
[2021-08-13] MEDS: morphine 4 mg/mL SDV 1 mL IM (17:40)
[2021-08-13 19:13] VITALS: BP 102/64
== END 2021-08-13 19:15 | disposition home or self-care (01) ==
PROVIDERS: Emergency Provider Emergency Medicine; PCP Internal Medicine
DX: S81.851A Open bite, right lower leg, initial encounter (principal); S70.311A Abrasion, right thigh, initial encounter; W54.0XXA Bitten by dog, initial encounter; Z23 Encounter for immunization
CPT/HCPCS: 73590; 90471; 90715; 96372; 99283; J1885; J2270

== ENCOUNTER 2021-10-16 11:16 | Emergency (ER) | payer MEDICARE, MEDICAID, SELFPAY ==
[2021-10-16 11:25] VITALS: BP 102/66; PULSE 80; RESP 18; TEMP 37.1; O2SAT 97; BMI 22.8
[2021-10-16 13:39] LABS: Basophils % 0.5 %; Eosinophils # 0.4 10^3/uL (0.0-0.8); Eosinophils % 5.7 %; Hemoglobin 14.7 g/dL (11.7-16.6); Lymphocytes # 1.5 10^3/uL (0.8-4.8); Lymphocytes % 20.8 %; Mean Corpuscular HGB Conc 32.7 g/dL (30.0-36.0); Mean Corpuscular Hemoglobin 29.5 pg (28.0-34.0); Mean Corpuscular Volume 90.2 fl (80-94); Mean Platelet Volume 9.1 fL (7.4-10.4); Monocytes # 0.6 10^3/uL (0.2-0.9); Monocytes % 8.5 %; Neutrophils # 4.73 10^3/uL (1.8-7.7); Neutrophils % 64.2 %; Nucleated Red Blood Cells % 0 %; Platelet Count 330 10^3/cmm (130-400); Red Blood Count 4.99 10^6/uL (4.1-5.3); Red Cell Distribution Width 11.9 % (12.1-15.1); White Blood Count 7.4 10^3/uL (4.0-10.0)
[2021-10-16 14:01] LABS: Alanine Aminotransferase 7 U/L (0-41); Albumin Level 4.4 g/dL (3.5-5.2); Alkaline Phosphatase 84 IU/L (40-130); Anion Gap 16.2 (5-19); Aspartate Amino Transferase 12 U/L (0-40); Blood Urea Nitrogen 11 mg/dL (6-20); Carbon Dioxide 25 mmol/L (22-29); Chloride 102 mmol/L (98-107); Globulin 3.4 g/dL (1.3-4.6); Glomerular Filtration Rate 93.5 mL/min (90-130); Glucose 84 mg/dL (65-115); Lipase 22 U/L (13-60); Osmolality Calculated 287 mOsm/kg (285-295); Potassium 4.2 mmol/L (3.5-5.1); Sodium 139 mmol/L (136-145); Total Bilirubin 0.2 mg/dL (0.15-1.2); Total Protein 7.8 g/dL (6.6-8.7)
[2021-10-16 15:11] LABS: Add Urine Microscopic? NO; Charge for UA Resulting for Rev
[2021-10-16 15:22] LABS: Bilirubin Urine Neg (Negative); Blood Urine Neg (Negative); Glucose Urine UA Norm (Normal); Ketones Urine Negative (Negative); Leukocyte Esterase Urine Negative (Negative); Nitrate Urine Negative (Negative); Protein Urine Neg (Negative); Urine Appearance Clear (CLEAR); Urine Color Yellow (Yellow); Urobilinogen Urine Norm (Negative); pH Urine 6 (5-7)
--- NOTE | 2021-10-16 16:09 | CTR_ITS ---
PROCEDURE INFORMATION: Exam: CT Abdomen And Pelvis With Contrast Exam date and time: 10/16/2021 4:09 PM Age: 41 years old Clinical indication: Abdominal pain; Prior surgery; Surgery type: taint SX, colon, testicular; Additional info: Abd pain, black and green stools, nausea x 2 days TECHNIQUE: Imaging protocol: Computed tomography of the abdomen and pelvis with contrast. Total images: 214 Radiation optimization: All CT scans at this facility use at least one of these dose optimization techniques: automated exposure control; mA and/or kV adjustment per patient size (includes targeted exams where dose is matched to clinical indication); or iterative reconstruction. Contrast material: OMNI 300; Contrast volume: 95 ml; Contrast route: INTRAVENOUS (IV); COMPARISON: CT abdomen pelvis w con* [id number] 04/30/2021 7:04 PM RADIATION DOSE METRICS: Total DLP (mGy-cm): 867.11 FINDINGS: Lungs: Limited assessment of the lung bases fails to reveal evidence for active cardiopulmonary process. Stable tiny subpleural pulmonary nodule lateral basal segment right lower lobe measuring under 3 mm. No follow-up recommended. Liver: No visible hepatic mass or cystic structure. Gallbladder and bile ducts: Unremarkable. No calcified stones. No ductal dilation. Pancreas: Pancreas is unremarkable. No visible pancreatic ductal ectasia. Spleen: Spleen unremarkable other than rare calcified splenic granuloma. Adrenal glands: Adrenal glands stable and unremarkable. Kidneys and ureters: No hydronephrosis or perinephric fluid. No visible nephrolithiasis or visible ureterolithiasis. No visible renal mass. Stomach and bowel: Mild mucosal thickening of the distal transverse colon, splenic flexure, and descending colon consistent with either active inflammatory or infectious colitis. Mild diverticulosis coli without visible evidence of acute diverticulitis. No visible significant adynamic or reactive ileus. Appendix: The appendix is visualized and appears noninflamed. Intraperitoneal space: Tiny amount of free fluid in the pouch of [place]. No visible pneumoperitoneum or generalized intraperitoneal ascites. Vasculature: Portal vein patent. The abdominal aorta is nonaneurysmal. Lymph nodes: No current visible evidence of active mesenteric or retroperitoneal lymphadenopathy. No visible evidence of mesenteric lymphadenitis or active mesenteritis/panniculitis. Urinary bladder: Urinary bladder unremarkable. No visible bladder stone. Reproductive: Unremarkable as visualized for age. Bones/joints: No visible active or acute osseous pathology. Soft tissues: Unremarkable. CT/CT abdomen pelvis w con* [id number] IMPRESSION: 1. Mild mucosal thickening of the distal transverse colon, splenic flexure, and descending colon consistent with either active inflammatory or infectious colitis. 2. Tiny amount of free fluid in the pouch of [place] most likely reactive. 3. Mild diverticulosis coli without visible evidence of acute diverticulitis.
[2021-10-16] MEDS: iohexol 300 mg/mL 100 mL Btl IV (16:30)
[2021-10-16] MEDS: ondansetron 2 mg/ML SDV 2 mL 4 MG IVP (16:42)
[2021-10-16] MEDS: morphine 4 mg/mL SDV 1 mL IVP (16:42)
[2021-10-16] MEDS: sodium chloride 0.9% 1,000 ML 999 ML IV (16:43)
[2021-10-16 16:54] VITALS: BP 96/59; PULSE 102; RESP 20; O2SAT 99
--- NOTE | 2021-10-16 16:56 | W.ED.ABDPA2 ---
HPI - Abdominal Pain General: Chief Complaint: Abdominal Pain Stated Complaint: STABBING PAIN IN ABD Time Seen by Provider: 10/16/21 15:31 History of Present Illness: HPI narrative: 41-year-old male presents emergency room complaining of abdominal pain burning sensation in the epigastric area he is taking Pepto-Bismol and Mylanta without relief of pain. Has had these issues in the past. Is also had some diarrhea denies any medication on hematemesis coffee-ground emesis. This is not a new problem has been a recurrent problem in the past. MD elicited complaint: abdominal pain Onset (ago): day(s) Pain Consistency: constant and colicky Location: Epigastric Severity: moderate Radiation: none Migration to: no migration Relieving factors: nothing Associated Symptoms: Reports anorexia, bloating, GI cramping, loose stools, nausea and poor appetite; Denies belching, change in bowel habits, change in stool character, chills, coffee ground emesis, constipation, diarrhea, dyspepsia, dysuria, excessive flatus, fever(s), heartburn, hematochezia, hematuria, hematemesis, fecal incontinence, melena, syncope and vomiting Review of Systems Const: Denies: fever(s) or chills ENMT: Denies: throat pain, ear or mastoid pain, nasal discharge or nasal congestion Card: Denies: syncope Resp: Denies: dyspnea, productive cough or non-productive cough GI: Reports: nausea, bloating and GI cramping; Denies: vomiting, hematemesis, coffee ground emesis, heartburn, diarrhea, constipation, belching, excessive flatus, fecal incontinence, change in bowel habits, change in stool character, hematochezia or melena : Denies: dysuria or hematuria Skin/Breast: Denies: rash or pruritus PFSH ED PFSH: Medical History Dysuria Urolithiasis Surgical History H/O lithotripsy History of orchiectomy, bilateral Family History Father No problems noted. Mother , at ag 70 Diabetes Social History Smoking and tobacco status: current every day smoker Alcohol intake: current Alcohol intake frequency: few times a month Marital status: Single Current occupational status: disabled History of recent travel: No Physical Exam Const: COMMON NORMALS: no acute distress GENERAL APPEARANCE: cooperative and comfortable ORIENTATION/CONSCIOUSNESS: Yes awake, Yes oriented to person, Yes oriented to place and Yes oriented to time HENMT: COMMON NORMALS: normocephalic, atraumatic, hearing grossly normal bilaterally, external ears normal and EAC's normal HEAD & SCALP: normocephalic and atraumatic EXTERNAL EAR: Yes external ears normal EXTERNAL AUDITORY CANAL: EAC's normal Neck/C-Spine: COMMON NORMALS: no JVD Resp: COMMON NORMALS: normal respiratory effort, No retractions, No use of accessory muscles and clear to auscultation bilaterally AUSCULTATION: clear to auscultation bilaterally Cardio: COMMON NORMALS: no JVD, regular rate, regular rhythm and No murmurs present (Cardio) RATE: regular rate RHYTHM: regular rhythm GI: COMMON NORMALS: No hepatosplenomegaly present AUSCULTATION: Yes normoactive bowel sounds PALPATION: Yes Tenderness to palpation present (GI) (Epigastric region), No Guarding due to palpation present (GI) and Yes No hepatosplenomegaly present Extremity: COMMON NORMALS: normal to inspection, capillary refill normal, no clubbing, cyanosis or edema, no calf tenderness and no pedal edema Neuro: SENSORIUM/ORIENTATION: Yes oriented to person, Yes oriented to place and Yes oriented to time Skin: COMMON NORMALS: no rashes or lesions noted GENERAL SKIN EXAM: no rashes or lesions noted Course Vital Signs: Vital signs: Vital Signs Temperature 98.7 F 10/16/21 11:25 Pulse Rate 63 10/16/21 17:40 Respiratory Rate 17 10/16/21 17:40 Blood Pressure 127/70 10/16/21 17:40 Pulse Oximetry 97 10/16/21 17:40 MDM - Abdominal Pain MDM Narrative: Medical decision making narrative: CT shows colitis in the area of the transverse colon. Organ to go ahead and discharge patient home on Cipro Flagyl clear liquid diet Zofran to use as needed follow-up with his primary care doctor likely will need endoscopy at a later date. Lab Data: Labs: Lab Results 10/16/21 10/16/21 10/16/21 13:15 13:15 15:01 WBC 7.4 10^3/uL 10^3/ uL (4.0-10.0) RBC 4.99 10^6/uL 10^6 /uL (4.1-5.3) Hgb 14.7 g/dL g/dL (11.7-16.6) Hct 45.0 % % (42.0-52.0) MCV 90.2 fl fl (80-94) MCH 29.5 pg pg (28.0-34.0) MCHC 32.7 g/dL g/dL (30.0-36.0) RDW 11.9 % L % (12.1-15.1) Plt Count 330 10^3/cmm 10^3 /cmm (130-400) MPV 9.1 fL fL (7.4-10.4) Neut % (Auto) 64.2 % % Lymph % (Auto) 20.8 % % [place] % (Auto) 8.5 % % Eos % (Auto) 5.7 % % Baso % (Auto) 0.5 % % Neut # (Auto) 4.73 10^3/uL 10^3 /uL (1.8-7.7) Lymph # (Auto) 1.5 10^3/uL 10^3/ uL (0.8-4.8) [place] # (Auto) 0.6 10^3/uL 10^3/ uL (0.2-0.9) Eos # (Auto) 0.4 10^3/uL 10^3/ uL (0.0-0.8) Baso # (Auto) 0.0 10^3/uL 10^3/ uL (0.0-0.1) Nucleated RBC % (a uto) 0 % % Nucleated RBCs # 0.0 /100WBC /100W BC Sodium 139 mmol/L mmol/L (136-145) Potassium 4.2 mmol/L mmol/L (3.5-5.1) Chloride 102 mmol/L mmol/L (98-107) Carbon Dioxide 25 mmol/L mmol/L (22-29) Anion Gap 16.2 (5-19) BUN 11 mg/dL mg/dL (6-20) Creatinine 0.9 mg/dL mg/dL (0.7-1.2) GFR Calculation 93.5 mL/min mL/mi n (90-130) Glucose 84 mg/dL mg/dL (65-115) Calculated Osmolal ity 287 mOsm/kg mOsm/ kg (285-295) Calcium 9.0 mg/dL mg/dL (8.5-10.5) Total Bilirubin 0.2 mg/dL mg/dL (0.15-1.2) AST 12 U/L U/L (0-40) ALT 7 U/L U/L (0-41) Alkaline Phosphata se 84 IU/L IU/L (40-130) Total Protein 7.8 g/dL g/dL (6.6-8.7) Albumin 4.4 g/dL g/dL (3.5-5.2) Globulin 3.4 g/dL g/dL (1.3-4.6) Lipase 22 U/L U/L (13-60) Urine Color Yellow (Yellow) Urine Appearance Clear (CLEAR) Urine pH 6 (5-7) Ur Specific Gravit y 1.020 (1.005-1.030) Urine Protein Neg (Negative) Urine Glucose (UA) Norm (Normal) Urine Ketones Negative (Negative) Urine Blood Neg (Negative) Urine Nitrate Negative (Negative) Urine Bilirubin Neg (Negative) Urine Urobilinogen Norm mg/dL mg/dL (Negative) Ur Leukocyte Sivan ase Negative (Negative) Discharge Plan Discharge Patient Disposition: Home Clinical Impression: Colitis Condition: Stable Prescriptions: New Cipro 500 mg tablet 500 mg PO BID Qty: 14 RF: 0 Flagyl 500 mg tablet 500 mg PO BID 7 Days Qty: 14 RF: 0 Zofran 4 mg tablet 4 mg PO Q6H PRN (Reason: nausea and vomiting) Qty: 20 RF: 0 No Action Adult Robitussin Peak Cold M-S 5-10-100 mg/5 mL liquid 10 ml PO Q4H PRN (Reason: cold symptoms) Qty: 237 RF: 0 azithromycin 250 mg tablet See Rx Instructions PO .COMPLEX Qty: 6 RF: 0 pantoprazole 40 mg tablet,delayed release (DR/EC) 40 mg PO QAM Qty: 90 RF: 3 buspirone 15 mg tablet 15 mg PO BID Qty: 60 RF: 1 testosterone [AndroGel] 20.25 mg/1.25 gram (1.62 %) gel in metered-dose pump 1 pump topical .AT BEDTIME Qty: 75 RF: 3 ropinirole 1 mg tablet 1 mg PO TID Qty: 90 RF: 3 Celexa 40 mg tablet 40 mg PO DAILY Qty: 30 RF: 3 ibuprofen 800 mg tablet 800 mg PO TID PRN (Reason: unknown) Qty: 90 RF: 8 tamsulosin [Flomax] 0.4 mg capsule 0.4 mg PO DAILY Qty: 90 RF: 3 ondansetron 4 mg tablet,disintegrating 4 mg PO Q6H PRN (Reason: nausea and vomiting) Qty: 14 RF: 0 oxycodone 5 mg tablet 5 mg PO Q4H PRN (Reason: pain) Qty: 10 RF: 0 Discharge Orders: Discharge ED (Routine); Ordered 10/16/21 Ordered By: Andrew Galarza Referrals: Josiah Schreiber MD [Primary Care Provider] - Discharge Diet: Usual diet Discharge Activity: Resume usual activity Patient Instructions: Opioid Safety Activity Restrictions/Additional Instructions: Follow-up with your primary care doctor within the next week. 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
[2021-10-16 17:14] VITALS: BP 127/70; PULSE 83; RESP 15; O2SAT 100
[2021-10-16 17:40] VITALS: BP 127/70; PULSE 63; RESP 17; O2SAT 97
--- NOTE | 2021-10-21 13:57 | DCPLANNER ---
game manager had message to schedule a follow up appointment for patient with Dr. Schreiber. game manager called the office of Dr. Schreiber, spoke with Sophie, gave clinic patients information. game manager was told that patient was seen by Dr. Schreiber on 10.21.21.
== END 2021-10-16 17:41 | disposition home or self-care (01) ==
PROVIDERS: Emergency Medicine; Emergency Provider Family Medicine; PCP Internal Medicine
DX: K52.9 Noninfective gastroenteritis and colitis, unspecified (principal); F17.210 Nicotine dependence, cigarettes, uncomplicated
CPT/HCPCS: 36415; 74177; 80053; 81003; 83690; 85025; 96361; 96374; 96375; 99284; J2270; J2405; J7030; Q9967

== ENCOUNTER → 2021-10-22 11:55 | Outpatient (BNVA) | payer MEDICARE, MEDICAID, SELFPAY | PROVIDERS: PCP Internal Medicine; Visit Provider Internal Medicine | DX: Z01.812 Encounter for preprocedural laboratory examination (principal); K52.9 Noninfective gastroenteritis and colitis, unspecified | CPT/HCPCS: 87635 ==

== ENCOUNTER 2021-10-28 07:54 | Day surgery (SDC) | payer MEDICARE, MEDICAID, SELFPAY ==
[2021-10-23 14:48] VITALS: BMI 22.7
--- NOTE | 2021-10-28 08:01 | ANES.PREANE2 ---
Pre-Anesthetic Assessment Pre-Anesthetic Assessment: Height/Weight: Height 1.75 m Weight 69.853 kg Preop Diagnosis: colitis Proposed Procedure: Operation Date: 10/28/21 09:00 Proposed Procedures p EGD/Colon 04280 K52.9(Not Applicable) - Josiah Schreiber MD s Colonoscopy 72586 K52.9(Not Applicable) - Josiah Schreiber MD Familial anesthetic complications: None Was Beta Vicky taken within 24 hours: N/A Was Clonidine taken within 24 hours: N/A Last intake: > 8 hrs Social: Social History: Tobacco and No alcohol Exam: Pre-Anes Outpt Exam: alert, oriented x 3, clear to auscultation bilaterally and regular rate & rhythm Airway: MP: 1 Dentition: Full and Other Neuropsych: Neuropsych: Seizure (20 years ago ) Anesthetic Plan: ASA status: 2 Anesthesia: MAC Risk of > 500 ml blood loss (7ml/kg in children): No Other Pertinent Information: [email or web address] Anesthesia PFSH: Medical History Dysuria Urolithiasis Surgical History H/O lithotripsy History of orchiectomy, bilateral Family History Father No problems noted. Mother , at ag 70 Diabetes Social History Smoking and tobacco status: current every day smoker Alcohol intake: current Alcohol intake frequency: few times a month Marital status: Single Current occupational status: disabled History of recent travel: No Data Anesthesia Cardiac Studies: No Data to Display
--- NOTE | 2021-10-28 08:08 | P.HP_ITS ---
Same Day Surgery H&P Indication for Procedure/HPI DATE OF PROCEDURE: October 28, 2021 CHIEF COMPLAINT/INDICATIONFOR SURGICAL PROCEDURE: Abdominal pain and abnormal CT PREOP DIAGNOSIS: colitis PLANNED PROCEDRUE: Operation Date: 10/28/21 09:00 Proposed Procedures p EGD/Colon 92793 K52.9(Not Applicable) - Josiah Schreiber MD s Colonoscopy 57051 K52.9(Not Applicable) - Josiah Schreiber MD Medications/Allergies* Allergies/Adverse Reactions Allergy/AdvReac Type Severity Reaction Status Date / Time testosterone [From Androderm] Allergy redness at Verified 10/21/21 12:57 patch site codeine AdvReac makes me Verified 10/21/21 12:57 feel funny Pertinent History/Comorbid Conditions* Medical History (Updated 10/24/21 @ 00:00 by ) Dysuria Urolithiasis Surgical History (Updated 06/24/21 @ 08:25 by Chris Niño MD) H/O lithotripsy History of orchiectomy, bilateral Family History (Updated 01/04/20 @ 16:58 by Sophie Lynn LPN) Father Mother, at ag 70 Diabetes Mother Social History Smoking and tobacco status: current every day smoker Alcohol intake: current Alcohol intake frequency: few times a month Marital status: Single Current occupational status: disabled History of recent travel: No Pertinent Exam Findings alert, oriented x 3, clear to auscultation bilaterally, regular rate & rhythm, operative site marked and procedure specific exam findings Recommendations Surgery/Procedure today 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
[2021-10-28 08:14] VITALS: BP 120/80; PULSE 70; RESP 18; TEMP 36.2; O2SAT 96
[2021-10-28] MEDS: sodium chloride 0.9% 1,000 ML 30 ML IV (08:27)
[2021-10-28 09:33] VITALS: BP 115/81; PULSE 76; RESP 16; TEMP 36.1; O2SAT 99
== END 2021-10-28 10:13 | disposition home or self-care (01) ==
PROVIDERS: PCP Internal Medicine; Visit Provider Internal Medicine
PROC: 0DJD8ZZ Inspection of Lower Intestinal Tract, Via Natural or Artificial Opening Endoscopic (ICD-10-PCS; CPT 45378; 2021-10-28 09:00)
PROC: 0DJ08ZZ Inspection of Upper Intestinal Tract, Via Natural or Artificial Opening Endoscopic (ICD-10-PCS; CPT 43235; 2021-10-28 09:00)
DX: K52.9 Noninfective gastroenteritis and colitis, unspecified (principal); F17.210 Nicotine dependence, cigarettes, uncomplicated
CPT/HCPCS: 43235; 45378; 96360; J2704; J3490; J7030

== ENCOUNTER 2022-03-25 14:07 | Outpatient (CLI) | payer MEDICARE, MEDICAID, SELFPAY ==
--- NOTE | 2022-03-25 14:40 | XR_ITS ---
WS: [id number], AP view, 03/25/2022 Clinical Data: Urolithiasis Comparison: [facility], 01/12/2018. Findings: No abnormal intraabdominal masses or calcifications are seen. There is no dilatated small bowel or ev idence of obstruction. Fecal material and bowel gas obscure detail over both kidneys. XR/XR KUB [id number] Impression: Negative KUB.
== END 2022-03-25 14:08 | disposition home or self-care (01) ==
LOC: RAD 14:11
PROVIDERS: PCP Internal Medicine; Visit Provider Urology
DX: N20.9 Urinary calculus, unspecified (principal); R39.9 Unspecified symptoms and signs involving the genitourinary system; K61.1 Rectal abscess
CPT/HCPCS: 51798; 74018; 81003; 99213

== ENCOUNTER → 2022-04-01 09:40 | Outpatient (BNVA) | payer MEDICARE, MEDICAID, SELFPAY | PROVIDERS: PCP Internal Medicine; Visit Provider Surgery | DX: K61.1 Rectal abscess (principal); K61.0 Anal abscess | CPT/HCPCS: 99204 ==

== ENCOUNTER 2022-04-17 06:10 | Day surgery (SDC) | payer MEDICARE, MEDICAID, SELFPAY ==
[2022-04-16 10:30] VITALS: BMI 20.9
[2022-04-17 06:21] VITALS: BP 132/79; PULSE 64; RESP 18; TEMP 36.7; O2SAT 98
--- NOTE | 2022-04-17 06:47 | W.PM.OPSFHP ---
Same Day Surgery H&P Indication for Procedure/HPI DATE OF PROCEDURE: April 17, 2022 CHIEF COMPLAINT/INDICATIONFOR SURGICAL PROCEDURE: EUA fistulotomy PREOP DIAGNOSIS: perianal abscess PLANNED PROCEDURE: Operation Date: 04/17/22 07:00 Proposed Procedures p exam under anesthesia possible fistulomtomy 59870 16288,K61.2(Not Applicable) - Tristin Harman MD s Fistulotomy Anal(Not Applicable) - Tristin Harman MD Medications/Allergies* Home Medications Medication Instructions Recorded Confirmed Type ropinirole 1 mg tablet 1 mg PO BID 04/16/22 04/16/22 History Allergies/Adverse Reactions Allergy/AdvReac Type Severity Reaction Status Date / Time testosterone [From Androderm] Allergy redness at Verified 04/16/22 10:29 patch site codeine AdvReac makes me Verified 04/16/22 10:29 feel funny Pertinent History/Comorbid Conditions* Medical History (Updated 04/01/22 @ 09:59 by Tristin Harman MD) Lower urinary tract symptoms (LUTS) Ureteral calculus Urolithiasis Surgical History (Updated 04/01/22 @ 10:00 by Tristin Harman MD) H/O esophagogastroduodenoscopy H/O lithotripsy History of colon surgery colon abscess History of orchiectomy, bilateral Status post colonoscopy Family History (Updated 01/04/20 @ 16:58 by Sophie Lynn LPN) Father Mother, at ag 70 Diabetes Mother Social History Smoking and tobacco status: current every day smoker Quit status (tobacco): has tried quititng Second hand smoke exposure: No Smoking risk assessment/counseling performed?: Yes Tobacco counseling given: provider counseling and counseling >3 minutes Alcohol intake: current Alcohol intake frequency: few times a month Marital status: Single Current occupational status: disabled History of recent travel: No Pertinent Exam Findings alert, oriented x 3 and regular rate & rhythm Recommendations Surgery/Procedure today Coding Level of Care Code 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
[2022-04-17] MEDS: sodium chloride 0.9% 1,000 ML 30 ML IV (06:51)
--- NOTE | 2022-04-17 06:57 | ANES.PREANE2 ---
Pre-Anesthetic Assessment Height/Weight: Height 1.75 m Weight 64.41 kg Temp Pulse Resp BP Pulse Ox 98.0 F 64 18 132/79 98 04/17/22 06:21 04/17/22 06:21 04/17/22 06:21 04/17/22 06:21 04/17/22 06:21 Preop Diagnosis: perianal abscess Operation Date: 04/17/22 07:00 Proposed Procedures p exam under anesthesia possible fistulomtomy 11093 35341,K61.2(Not Applicable) - Tristin Harman MD s Fistulotomy Anal(Not Applicable) - Tristin Harman MD Familial anesthetic complications: none Was Beta Vicky taken within 24 hours: N/A Was Clonidine taken within 24 hours: N/A Last intake: Intake Last Liquid Date 04/16/22 Last Liquid Time 23:30 Last Solid Date 04/16/22 Last Solid Time 23:30 Social Tobacco and No alcohol Exam alert, oriented x 3, clear to auscultation bilaterally and regular rate & rhythm Airway Submandibular: within normal limits Cervical ROM: within normal limits Mallampati: Class II Comments: Comments: poor dentition Pulmonary None reported CV/HEM None reported Klinefelter syndrome Urolithiasis Hepatic None reported GI Gastroesophageal Reflux Disease Perirectal abscess Metabolic None reported Musc/skel None reported Neuropsych None reported Anesthetic Plan ASA status: 3 Anesthesia: Anesthesia Evaluation, General and MAC Other: We discussed risk and benefits of general anesthesia including PONV, sore throat (sometimes severe), corneal abrasion, positioning and peripheral nerve injuries, life threatening allergic reaction, post operative ICU admission requiring prolonged intubation, aspiration, stroke, heart attack, , and rare incidences of recall. I discussed with the patient risks, goals, and benefits of MAC and general anesthesia. We discussed spectrum of MAC anesthesia including conversion to general as well as possibility of recall of intraoperative stimuli including discomfort/pain. Patient consents to MAC or General pending further discussion with surgeon. Risk of > 500 ml blood loss (7ml/kg in children): No Medications/Allergies Home Medications Medication Instructions Recorded Confirmed Last Taken Type buspirone 15 mg tablet 15 mg PO BID #60 tab 08/16/21 04/16/22 10/26/21 Rx testosterone 20.25 mg/1.25 gram 1 pump TOPICAL .AT BEDTIME #75 g 10/06/2904/17/22 04/16/22 Rx (1.62 %) transdermal gel pump (AndroGel) ibuprofen 800 mg tablet 800 mg PO TID PRN #90 tab 11/25/21 04/16/22 Unknown Rx ondansetron HCl 4 mg tablet 4 mg PO Q6H PRN #30 tab 01/28/22 04/16/22 Unknown Rx (Zofran) pantoprazole 40 mg tablet,delayed 40 mg PO QAM #90 tab 01/28/22 04/16/22 Unknown Rx release citalopram 40 mg tablet (Celexa) 40 mg PO DAILY #30 tab 02/11/22 04/16/22 Unknown Rx tamsulosin 0.4 mg capsule (Flomax) 0.4 mg PO DAILY #90 cap 03/25/22 04/16/22 Unknown Rx ropinirole 1 mg tablet 1 mg PO BID 04/16/22 04/16/22 Unknown History docusate sodium 100 mg capsule 100 mg PO BID #30 cap 04/17/22 Unknown Rx (Colace) hydrocodone 5 mg-acetaminophen 325 1 tab PO Q6H PRN #20 tab 04/17/22 Unknown Rx mg tablet ondansetron HCl 4 mg tablet 4 mg PO Q8H 5 Days #15 tab 04/17/22 Unknown Rx Allergies Allergy/AdvReac Type Severity Reaction Status Date / Time testosterone [From Androderm] Allergy redness at Verified 04/16/22 10:29 patch site codeine AdvReac makes me Verified 04/16/22 10:29 feel funny Current Medications Generic Name Dose Route Start Last Admin Trade Name Freq PRN Reason Stop Dose Admin Sodium Chloride 1,000 mls @ 30 mls/hr 04/17/22 06:15 04/17/22 06:51 Sodium Chloride 0.9% IV 04/18/22 06:14 30 mls/hr .Q24H GIOVANA Administration PFSH Anesthesia Medical History Lower urinary tract symptoms (LUTS) Ureteral calculus Urolithiasis Surgical History H/O esophagogastroduodenoscopy H/O lithotripsy History of colon surgery colon abscess History of orchiectomy, bilateral Status post colonoscopy Family History Father No problems noted. Mother , at ag 70 Diabetes Social History Smoking and tobacco status: current every day smoker Quit status (tobacco): has tried quititng Second hand smoke exposure: No Smoking risk assessment/counseling performed?: Yes Tobacco counseling given: provider counseling and counseling >3 minutes Alcohol intake: current Alcohol intake frequency: few times a month Marital status: Single Current occupational status: disabled History of recent travel: No Data Anesthesia Cardiac Studies: No Data to Display
[2022-04-17] MEDS: lidocaine 2% INJ 20 mL INJECTION (07:28)
--- NOTE | 2022-04-17 07:32 | PM.OP ---
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 Rectal exam under anesthesia 2. Fistulotomy Pathology: none sent Surgeon: Tristin Harman Anesthesia: MAC Condition: stable Disposition: PACU Procedure: The patient was taken to the operating room and placed in the lithotomy position under MAC after IV antibiotic had been administered. Rectal exam under anesthesia revealed no other palpable masses or areas of induration. Using a lacrimal probe the draining sinus was identified and the fistula measuring about 3 cm long superficial to the anal sphincter was identified, a fistulotomy was performed using electrocautery and the fistula was curetted and hemostasis was ensured with cautery. Sterile dressings were applied. Patient tolerated procedure well and was transferred to recovery room in stable condition.
[2022-04-17 07:38] VITALS: BP 106/73; PULSE 57; RESP 16; TEMP 36.4; O2SAT 98
[2022-04-17 07:43] VITALS: BP 112/81; PULSE 65; RESP 16; O2SAT 97
[2022-04-17 07:47] VITALS: BP 122/68; PULSE 63; RESP 16; TEMP 36.2; O2SAT 98
[2022-04-17 08:05] VITALS: BP 117/80; PULSE 70; TEMP 36.3; O2SAT 98
[2022-04-17] MEDS: HYDROcodone-acetaminophen 5-325 mg Tablet 1 TAB PO (08:29)
--- NOTE | 2022-04-17 13:24 | ANE.PACU2 ---
Inpatient post-anesthesia follow up: Airway intact: Yes Vital signs: Temperature 97.3 F Pulse Rate 70 Respiratory Rate 16 Blood Pressure 117/80 Pulse Oximetry 98 Oxygen Delivery Me thod Room Air Oxygen Flow Rate Fraction of Inspir ed Oxygen Hydration adequate: Yes Nausea and vomiting: No Pain level: 1 Mental status: Baseline
== END 2022-04-17 08:35 | disposition home or self-care (01) ==
PROVIDERS: PCP Internal Medicine; Visit Provider Surgery
PROC: (CPT 46270; principal; 2022-04-17 07:00)
PROC: (CPT 46270; 2022-04-17 07:00)
DX: K60.3 Anal fistula (principal); F17.210 Nicotine dependence, cigarettes, uncomplicated; K21.9 Gastro-esophageal reflux disease without esophagitis
CPT/HCPCS: 46270; J2704; J3010; J3490; J7030

== ENCOUNTER → 2022-04-29 10:26 | Outpatient (BNVA) | payer MEDICARE, MEDICAID, SELFPAY | PROVIDERS: PCP Internal Medicine; Visit Provider Surgery | DX: Z98.890 Other specified postprocedural states (principal) | CPT/HCPCS: 99213 ==

== ENCOUNTER → 2022-11-25 15:50 | Outpatient (BNVA) | payer MEDICARE, MEDICAID, SELFPAY | PROVIDERS: PCP Family Medicine; Visit Provider Family Medicine | DX: R30.0 Dysuria (principal); N48.1 Balanitis; E29.1 Testicular hypofunction; Z79.890 Hormone replacement therapy; N40.0 Benign prostatic hyperplasia without lower urinary tract symptoms; E78.2 Mixed hyperlipidemia | CPT/HCPCS: 80053; 80061; 81000; 84153; 84443; 85025; 87491; 87591 ==

== ENCOUNTER → 2022-12-02 12:17 | Outpatient (BNVA) | payer MEDICARE, MEDICAID, SELFPAY | PROVIDERS: PCP Family Medicine; Visit Provider Family Medicine | DX: E29.1 Testicular hypofunction (principal); N48.1 Balanitis; R30.0 Dysuria; Z79.890 Hormone replacement therapy | CPT/HCPCS: 81000 ==

== ENCOUNTER 2023-03-17 12:08 | Outpatient (CLI) | payer MEDICARE, SELFPAY ==
--- NOTE | 2023-03-17 12:21 | XR_ITS ---
WS: [id number] KUB, AP view, 03/17/2023 Clinical Data: stones Comparison: KUB, 03/25/2022 Findings: No abnormal intraabdominal masses or calcifications are seen. There is no dilatated small bowel or ev idence of obstruction. There is a moderate amount of fecal material throughout the colon. XR/XR KUB 23005 Impression: Negative KUB.
== END 2023-03-17 12:09 | disposition home or self-care (01) ==
LOC: RAD 12:13
PROVIDERS: PCP Family Medicine; Visit Provider Urology
DX: N20.9 Urinary calculus, unspecified (principal); R39.9 Unspecified symptoms and signs involving the genitourinary system
CPT/HCPCS: 51741; 51798; 74018; 81003; 99213

== ENCOUNTER 2023-09-24 11:21 | Emergency (ER) | payer MEDICARE, SELFPAY ==
[2023-09-24 11:25] VITALS: BP 124/75; PULSE 71; RESP 16; TEMP 36.4; O2SAT 99; BMI 20.9
--- NOTE | 2023-09-24 11:36 | XR_ITS ---
WS: [id number] Exam: XR chest 1V portable [id number] Date/Time of Exam: 09/24/2023 11:36 AM Reason For Exam: chest pain Comparison 03/22/2018. Findings: The lungs are clear and fully expanded. Costophrenic angles are sharp. No infiltrates. Bronchovascula r relief appears normal. Cardiac silhouette is unremarkable. Bony elements are intact. Scattered calc ified granulomas. IMPRESSION: Unremarkable chest radiograph.
--- NOTE | 2023-09-24 11:36 | ECG_ITS ---
[facility] Test Date: 2023-09-24 Pat Name: Hussein Kim Department: Room: Gender: Male R D Intern: : 1980 Requested By: Hans Tobin Order Number: [id number] Kasey MD: Bharat Hernandez M.D. Measurements Intervals [place] Rate: 64 P: 71 IA: 138 QRS: 52 QRSD: 89 T: 53 QT: 393 QTc: 408 Interpretive Statements SINUS RHYTHM No previous ECG available for comparison Electronically Signed On 09-25-2023 14:11:51 SHEET ROCK HANGER by Bharat Hernandez M.D. [id number]
[2023-09-24 12:15] LABS: Basophils % 0.5 %; Eosinophils # 0.1 10^3/uL (0.0-0.8); Eosinophils % 1.3 %; Hematocrit 46.3 % (37-53); Lymphocytes # 1.9 10^3/uL (0.8-4.8); Lymphocytes % 22.1 %; Mean Corpuscular HGB Conc 33.7 g/dL (30-55); Mean Corpuscular Hemoglobin 30.2 pg (27-33); Mean Corpuscular Volume 89.6 fl (82-101); Mean Platelet Volume 8.8 fL (7.4-10.4); Monocytes # 0.5 10^3/uL (0.2-0.9); Monocytes % 5.4 %; Neutrophils # 5.92 10^3/uL (1.8-7.7); Neutrophils % 70.5 %; Nucleated Red Blood Cells % 0 %; Platelet Count 302 10^3/cmm (157-399); Red Blood Count 5.17 10^6/uL (3.85-5.65); Red Cell Distribution Width 11.9 % (12.1-15.1); White Blood Count 8.39 10^3/uL (3.29-11.43)
[2023-09-24 12:30] LABS: Troponin(5th) Baseline < 6 ng/L (0-15)
[2023-09-24 12:35] LABS: Alanine Aminotransferase 10 U/L (0-41); Albumin Level 4.9 g/dL (3.5-5.2); Alkaline Phosphatase 86 U/L (40-130); Anion Gap 16.1 (5-19); Aspartate Amino Transferase 15 U/L (0-40); Blood Urea Nitrogen 10 mg/dL (6-20); Calcium 10.5 mg/dL (8.5-10.5); Carbon Dioxide 29 mmol/L (22-29); Chloride 100 mmol/L (98-107); Globulin 3.4 g/dL (1.3-4.6); Glucose 109 mg/dL (65-115); Osmolality Calculated 292 mOsm/kg (285-295); Potassium 4.1 mmol/L (3.5-5.1); Sodium 141 mmol/L (136-145); Total Bilirubin 0.4 mg/dL (0.15-1.2); Total Protein 8.3 g/dL (6.6-8.7)
[2023-09-24 13:35] VITALS: BP 157/83; PULSE 65; RESP 18; O2SAT 98
--- NOTE | 2023-09-24 13:52 | ECG_ITS ---
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 Measurements Intervals [place] Rate: 60 P: 72 ND: 145 QRS: 61 QRSD: 95 T: 58 QT: 428 QTc: 428 Interpretive Statements SINUS RHYTHM LOW QRS VOLTAGE IN PRECORDIAL LEADS [QRS DEFLECTION < 1.0 mV IN CHEST LEADS] Compared to ECG 09/24/2023 11:34:17 Low QRS voltage now present Electronically Signed On 09-25-2023 14:19:21 LITHOPLATE MAKER by Bharat Hernandez M.D. [id number]
--- NOTE | 2023-09-24 14:09 | W.ED.CHESTPA ---
HPI - Chest Pain General: Chief Complaint: Chest Pain Stated Complaint: chest pain x5days Time Seen by Provider: 09/24/23 13:20 History of Present Illness: patient presents to the ER with complaints of chest pain for about the last 5 to 6 days off and on. When the patient points to where the chest hurts it is more upper epigastric in nature. Patient states it does not radiate. He has tried [id number] antiacids that did not help as well as eating and not eating with no change. Patient is figured out nothing that can make it better or worse. patient has not taken his normal chronic medicines for the last 4 to 5 days because of his pain. Review of Systems General: Reports: 10 or more systems reviewed and unremarkable except in HPI and below PFSH ED PFSH: Medical History Lower urinary tract symptoms (LUTS) Ureteral calculus Urolithiasis Surgical History H/O esophagogastroduodenoscopy H/O lithotripsy History of colon surgery colon abscess History of orchiectomy, bilateral Status post colonoscopy Status post surgery perianal fistulotomy Family History Father No problems noted. Mother , at ag 70 Diabetes Social History Smoking and tobacco/nicotine status: current every day tobacco/nicotine user cigarettes Packs smoked per day: 1.5 Quit status (tobacco/nicotine): has tried quititng Second hand smoke exposure: No Alcohol intake: current Alcohol intake frequency: holidays/special occasions only Substance/Drug Use: current Substance/Drug use frequency: daily Adopted: No Caregiver/support person: Yes Lives independently: No Housing: House Marital status: Single Current occupational status: disabled Physical Exam Const: COMMON NORMALS: no acute distress, average body habitus, patient oriented x3, no limitations, healthy appearing, alert and well nourished HENMT: COMMON NORMALS: normocephalic, atraumatic, hearing grossly normal bilaterally, external ears normal, Normal external nose present, moist oral mucous membranes and oropharynx normal HEAD & SCALP: normocephalic and atraumatic NOSE: Normal external nose present EXTERNAL EAR: Yes external ears normal Neck/C-Spine: COMMON NORMALS: no JVD Chest: COMMONS NORMALS: normal inspection of the chest and normal palpation of entire chest wall Resp: COMMON NORMALS: normal respiratory effort, No retractions, No use of accessory muscles and clear to auscultation bilaterally AUSCULTATION: clear to auscultation bilaterally Cardio: COMMON NORMALS: no JVD, regular rate, regular rhythm, S1 normal heart sound present, S2 normal heart sound present, No gallops present (Cardio), No clicks present (Cardio), No murmurs present (Cardio) and No rub (Cardio) RATE: regular rate RHYTHM: regular rhythm HEART SOUNDS: S1 normal heart sound present and S2 normal heart sound present GI: COMMON NORMALS: Normal to inspection, nondistended, normoactive bowel sounds present, Soft to palpation, No hepatosplenomegaly present and no masses; negative for non-tender ( Tender to palpate over epigastric region this reproduces the pain.) PALPATION: Yes Soft to palpation and Yes No hepatosplenomegaly present Neuro: COMMON NORMALS: patient oriented x3 SENSORIUM/ORIENTATION: Yes alert Course Vital Signs: Vital signs: Vital Signs Temperature 97.6 F 09/24/23 11:25 Pulse Rate 60 09/24/23 15:16 Respiratory Rate 18 09/24/23 15:16 Blood Pressure 120/91 09/24/23 15:16 Pulse Oximetry 96 09/24/23 15:16 Oxygen Delivery Me thod Room Air 09/24/23 15:16 MDM - Chest Pain Medical Decision Making patient presented to ER with substernal chest pain that did not radiate. Is been going on for 5 to 6 days. Patient was worked up in a standard cardiac fashion with serial EKGs, labs, chest x-ray, patient was given a GI cocktail also. EKG and lab work was essentially benign. It is thought that patient is having noncardiac chest pain and more epigastruc pain. Patient be discharged home to follow-up with his PCP in the next 7 days for further evaluation and treatment. Differential Diagnosis Unlikely acute massive pulmonary embolism, acute respiratory failure, acute myocardial infarction, cardiac arrest or sudden cardiac Medical Records I reviewed the patient's medical records. Lab Data I reviewed the patient's lab results. 09/24/23 12:07 09/24/23 12:07 Laboratory Results WBC 8.39 10^3/uL (3.29-11.43) 09/24/23 12:07 RBC 5.17 10^6/uL (3.85-5.65) 09/24/23 12:07 Hgb 15.60 g/dL (11.27-16.99) 09/24/23 12:07 Hct 46.3 % (37-53) 09/24/23 12:07 MCV 89.6 fl (82-101) 09/24/23 12:07 MCH 30.2 pg (27-33) 09/24/23 12:07 MCHC 33.7 g/dL (30-55) 09/24/23 12:07 RDW 11.9 % (12.1-15.1) L 09/24/23 12:07 Plt Count 302 10^3/cmm (157-399) 09/24/23 12:07 MPV 8.8 fL (7.4-10.4) 09/24/23 12:07 Neut % (Auto) 70.5 % 09/24/23 12:07 Lymph % (Auto) 22.1 % 09/24/23 12:07 Wilcox % (Auto) 5.4 % 09/24/23 12:07 Eos % (Auto) 1.3 % 09/24/23 12:07 Baso % (Auto) 0.5 % 09/24/23 12:07 Neut # (Auto) 5.92 10^3/uL (1.8-7.7) 09/24/23 12:07 Lymph # (Auto) 1.9 10^3/uL (0.8-4.8) 09/24/23 12:07 Wilcox # (Auto) 0.5 10^3/uL (0.2-0.9) 09/24/23 12:07 Eos # (Auto) 0.1 10^3/uL (0.0-0.8) 09/24/23 12:07 Baso # (Auto) 0.0 10^3/uL (0.0-0.1) 09/24/23 12:07 Nucleated RBC % (auto) 0 % 09/24/23 12:07 Nucleated RBCs # 0.0 /100WBC 09/24/23 12:07 Sodium 141 mmol/L (136-145) 09/24/23 12:07 Potassium 4.1 mmol/L (3.5-5.1) 09/24/23 12:07 Chloride 100 mmol/L (98-107) 09/24/23 12:07 Carbon Dioxide 29 mmol/L (22-29) 09/24/23 12:07 Anion Gap 16.1 (5-19) 09/24/23 12:07 BUN 10 mg/dL (6-20) 09/24/23 12:07 Creatinine 0.9 mg/dL (0.7-1.2) 09/24/23 12:07 GFR Calculation 93.0 mL/min (90-130) 09/24/23 12:07 Glucose 109 mg/dL (65-115) 09/24/23 12:07 Calculated Osmolality 292 mOsm/kg (285-295) 09/24/23 12:07 Calcium 10.5 mg/dL (8.5-10.5) 09/24/23 12:07 Total Bilirubin 0.4 mg/dL (0.15-1.2) 09/24/23 12:07 AST 15 U/L (0-40) 09/24/23 12:07 ALT 10 U/L (0-41) 09/24/23 12:07 Alkaline Phosphatase 86 U/L (40-130) 09/24/23 12:07 Troponin T Baseline < 6 ng/L (0-15) 09/24/23 12:07 Troponin T 120 Minute 7.97 ng/L (0-15) 09/24/23 14:03 Delta Troponin T 1.94036 ABS# (0-10) 09/24/23 14:03 Total Protein 8.3 g/dL (6.6-8.7) 09/24/23 12:07 Albumin 4.9 g/dL (3.5-5.2) 09/24/23 12:07 Globulin 3.4 g/dL (1.3-4.6) 09/24/23 12:07 All radiology interpretation(s) finalized by discharge EKG Data EKG 1: I personally reviewed and interpreted this EKG as follows: EKG interpretation date: 09/24/23 EKG interpretation time: 11:36 Prior EKG tracings: not available for review Interpretation: EKG showed rate of 64 bpm, ID interval 138, QRS 89, QTc of 408, sinus rhythm, no ST-T wave changes EKG 2: I personally reviewed and interpreted this EKG as follows: EKG interpretation date: 09/24/23 EKG interpretation time: 13:52 Prior EKG tracings: available for review Interpretation: EKG showed ventricular rate 60 bpm, ID interval 145, QRS duration 95, QTc of 428, sinus rhythm, no ST-T wave changes Discharge Plan Discharge Patient Disposition: Home Clinical Impression: Chest pain, non-cardiac, Abdominal pain, acute, epigastric Condition: Stable Prescriptions: No Action buspirone 15 mg tablet 15 mg PO BID Qty: 60 2RF ropinirole 1 mg tablet 1 mg PO TID Qty: 270 3RF testosterone [AndroGel] 20.25 mg/1.25 gram (1.62 %) gel in metered-dose pump 1 pump topical .AT BEDTIME Qty: 75 3RF Rx Instructions: apply 1 pump amount ON EACH ARM AT NIGHT tamsulosin [Flomax] 0.4 mg capsule 0.4 mg PO DAILY Qty: 90 3RF griseofulvin microsize 500 mg tablet 500 mg PO Q12H Qty: 84 0RF Rx Instructions: must administer with high-fat meal or food Celexa 40 mg tablet 40 mg PO DAILY Qty: 90 3RF ibuprofen 800 mg tablet 800 mg PO TID PRN (Reason: unknown) Qty: 90 8RF pantoprazole 40 mg tablet,delayed release (DR/EC) 40 mg PO QAM Qty: 90 3RF Discharge Orders: Discharge ED (Routine); Ordered 09/24/23 Ordered By: Hans Tobin Referrals: Kimani Paredes DO [Primary Care Provider] - 1 week Patient Instructions: Chest Pain - Noncardiac, Abdominal Pain (ED) Activity Restrictions/Additional Instructions: your lab work did not reveal any acute cause of your chest pain. Is felt that is noncardiac in nature and and more epigastric type pain. Please follow-up with your family practice physician in the next 7 days for further evaluation and treatment. Coding Level of Care Code ED Proof Coin Collector for Ben Mcclure
[2023-09-24] MEDS: lidocaine 2% viscous 15 ML, aluminum-mag hydrox-simethicon 30 ML, sucralfate oral liq 1 GM PO (14:23)
[2023-09-24 14:30] VITALS: BP 123/84; PULSE 57; RESP 18; O2SAT 100
[2023-09-24 14:30] LABS: Troponin 5 2HR 7.97 ng/L (0-15); Troponin 5 2HR Delta 1.97001 ABS# (0-10)
[2023-09-24 15:16] VITALS: BP 120/91; PULSE 60; RESP 18; O2SAT 96
[2023-09-24 16:00] VITALS: BP 114/79; PULSE 56; RESP 18; O2SAT 95
== END 2023-09-24 16:01 | disposition home or self-care (01) ==
PROVIDERS: Emergency Provider Emergency Medicine; PCP Family Medicine
DX: R07.89 Other chest pain (principal); R10.13 Epigastric pain; F17.210 Nicotine dependence, cigarettes, uncomplicated
CPT/HCPCS: 36415; 71045; 80053; 84484; 85025; 93005; 99285

== ENCOUNTER → 2023-10-05 13:54 | Outpatient (BNVA) | payer MEDICARE, SELFPAY | PROVIDERS: PCP Family Medicine; Referring Provider Surgery; Visit Provider Surgery | DX: K21.9 Gastro-esophageal reflux disease without esophagitis (principal) | CPT/HCPCS: 99203; 99213 ==

== ENCOUNTER 2023-11-12 06:51 | Day surgery (SDC) | payer MEDICARE, SELFPAY ==
--- NOTE | 2023-11-12 06:46 | W.PM.OPSFHP ---
Same Day Surgery H&P Indication for Procedure/HPI DATE OF PROCEDURE: November 12, 2023 CHIEF COMPLAINT/INDICATIONFOR SURGICAL PROCEDURE: Reflux PREOP DIAGNOSIS: GERD PLANNED PROCEDURE: Operation Date: 11/12/23 07:55 [place] 8[address]29 egd K21.9(Not Applicable) - Shankar Saunders MD Medications/Allergies* Allergies/Adverse Reactions Allergy/AdvReac Type Severity Reaction Status Date / Time testosterone [From Androderm] Allergy redness at Verified 10/05/23 14:58 patch site codeine AdvReac makes me Verified 10/05/23 14:58 feel funny Pertinent History/Comorbid Conditions* Medical History (Updated 10/02/23 @ 00:00 by SOFIA Orozco) Ureteral calculus Lower urinary tract symptoms (LUTS) Urolithiasis Surgical History (Updated 05/01/22 @ 09:01 by Tristin Harman MD) Status post surgery perianal fistulotomy Status post colonoscopy H/O esophagogastroduodenoscopy History of colon surgery colon abscess H/O lithotripsy History of orchiectomy, bilateral Family History (Updated 01/04/20 @ 16:58 by Sophie Lynn LPN) Father Mother, at ag 70 Diabetes Mother Social History Smoking and tobacco/nicotine status: current every day tobacco/nicotine user cigarettes Packs smoked per day: 1.5 Quit status (tobacco/nicotine): has tried quititng Second hand smoke exposure: No Alcohol intake: current Alcohol intake frequency: holidays/special occasions only Substance/Drug Use: current Substance/Drug use frequency: daily Adopted: No Caregiver/support person: Yes Lives independently: No Housing: House Marital status: Single Current occupational status: disabled Pertinent Exam Findings alert, oriented x 3 and clear to auscultation bilaterally Recommendations Surgery/Procedure today Coding Level of Care Code Acute Code for Chg Fwd
[2023-11-12 07:06] VITALS: BP 130/66; PULSE 59; RESP 18; TEMP 36.4; O2SAT 99
[2023-11-12] MEDS: sodium chloride 0.9% 1,000 ML 30 ML IV (07:16)
--- NOTE | 2023-11-12 07:38 | ANES.PREANE2 ---
Pre-Anesthetic Assessment Height/Weight: Height 1.75 m Weight 65.771 kg Temp Pulse Resp BP Pulse Ox O2 Del Method 97.6 F 59 L 18 130/66 99 Room Air 11/12/23 07:06 11/12/23 07:06 11/12/23 07:06 11/12/23 07:06 11/12/23 07:06 11/12/23 07:06 Preop Diagnosis: GERD Operation Date: 11/12/23 07:55 Proposed Procedures p 34715 egd K21.9(Not Applicable) - Shankar Saunedrs MD Was Beta Vicky taken within 24 hours: N/A Was Clonidine taken within 24 hours: N/A Last intake: Intake Last Liquid Date 11/12/23 Last Liquid Time 00:00 Last Solid Date 11/11/23 Last Solid Time 23:40 Social Alcohol and Tobacco THC Exam alert, oriented x 3, clear to auscultation bilaterally and regular rate & rhythm Airway Submandibular: within normal limits Cervical ROM: within normal limits Mallampati: Class II Dentition: full History/ROS No significant history except as noted and No significant complaints Pulmonary None reported CV/HEM None reported None reported Hepatic None reported GI Gastroesophageal Reflux Disease Metabolic None reported Musc/skel None reported Neuropsych Anxiety Restless leg Anesthetic Plan ASA status: 3 Anesthesia: Anesthesia Evaluation and MAC Risk of > 500 ml blood loss (7ml/kg in children): No Medications/Allergies Home Medications Medication Instructions Recorded Confirmed Last Taken Type ibuprofen 800 mg tablet 800 mg PO TID PRN unknown #90 tabs 11/25/21 11/12/23 Unknown Rx citalopram 40 mg tablet (Celexa) 40 mg PO DAILY #90 tabs 11/25/22 11/12/23 11/11/23 Rx buspirone 15 mg tablet 15 mg PO BID #60 tabs 02/24/23 11/12/23 11/11/23 Rx ropinirole 1 mg tablet 1 mg PO TID #270 tabs 02/24/23 11/12/23 11/11/23 Rx tamsulosin 0.4 mg capsule (Flomax) 0.4 mg PO DAILY #90 caps 02/24/23 11/12/23 11/11/23 Rx pantoprazole 40 mg tablet,delayed 40 mg PO BID 6 weeks #84 tabs 10/05/23 11/12/2311/11/24 Rx release (Protonix) testosterone (AndroGel) 1 pump topical .AT BEDTIME #75 10/19/23 11/12/23 11/11/23 Rx grams Allergies Allergy/AdvReac Type Severity Reaction Status Date / Time testosterone [From Androderm] Allergy redness at Verified 10/05/23 14:58 patch site codeine AdvReac makes me Verified 10/05/23 14:58 feel funny Current Medications Generic Name Dose Route Start Last Admin Trade Name Katey PRN Reason Stop Dose Admin Sodium Chloride 1,000 mls @ 30 mls/hr 11/12/23 07:00 11/12/23 07:16 Sodium Chloride 0.9% IV 30 mls/hr .Q24H GIOVANA Administration PFSH Anesthesia Medical History Lower urinary tract symptoms (LUTS) Ureteral calculus Urolithiasis Surgical History H/O esophagogastroduodenoscopy H/O lithotripsy History of colon surgery colon abscess History of orchiectomy, bilateral Status post colonoscopy Status post surgery perianal fistulotomy Family History Father No problems noted. Mother , at ag 70 Diabetes Social History Smoking and tobacco/nicotine status: current every day tobacco/nicotine user cigarettes Packs smoked per day: 1.5 Quit status (tobacco/nicotine): has tried quititng Second hand smoke exposure: No Alcohol intake: current Alcohol intake frequency: holidays/special occasions only Substance/Drug Use: current Substance/Drug use frequency: daily Adopted: No Caregiver/support person: Yes Lives independently: No Housing: House Marital status: Single Current occupational status: disabled Data Anesthesia Cardiac Studies: No Data to Display
[2023-11-12 08:13] VITALS: BP 96/61; PULSE 73; RESP 16; TEMP 36.1; O2SAT 100
[2023-11-12 08:25] VITALS: BP 118/87; PULSE 77; RESP 18; O2SAT 99
--- NOTE | 2023-11-12 13:15 | ANE.PACU2 ---
Inpatient post-anesthesia follow up: Airway intact: Yes Vital signs: Temperature 97 F Pulse Rate 77 Respiratory Rate 18 Blood Pressure 118/87 Pulse Oximetry 99 Oxygen Delivery Me thod Room Air Oxygen Flow Rate Fraction of Inspir ed Oxygen Hydration adequate: Yes Nausea and vomiting: No Pain level: 2 Mental status: Baseline
== END 2023-11-12 08:39 | disposition home or self-care (01) ==
PROVIDERS: PCP Family Medicine; Visit Provider Surgery
PROC: 0DJ08ZZ Inspection of Upper Intestinal Tract, Via Natural or Artificial Opening Endoscopic (ICD-10-PCS; CPT 43235; principal; 2023-11-12 07:55)
DX: K21.9 Gastro-esophageal reflux disease without esophagitis (principal); F17.210 Nicotine dependence, cigarettes, uncomplicated; K22.81 Esophageal polyp; K29.50 Unspecified chronic gastritis without bleeding
CPT/HCPCS: 43235; 43239; 88305; 88312; 88342; J2704; J7030

== ENCOUNTER → 2023-12-04 09:37 | Outpatient (BNVA) | payer MEDICARE, SELFPAY | PROVIDERS: PCP Family Medicine; Visit Provider Surgery | DX: Z09 Encounter for follow-up examination after completed treatment for conditions other than malignant neoplasm (principal) | CPT/HCPCS: 99213 ==

== ENCOUNTER 2024-06-04 14:45 | Emergency (ER) | payer MEDICARE, SELFPAY ==
[2024-06-04 14:51] VITALS: BP 117/77; PULSE 63; RESP 16; TEMP 36.9; O2SAT 99
--- NOTE | 2024-06-04 14:57 | ED_ITS ---
HPI - Wound/Laceration General: Chief Complaint: Wound/Laceration Stated Complaint: tripped and cut left knee and leg Time Seen by Provider: 06/04/24 14:56 Source: patient Mode of arrival: ambulatory Limitations: no limitations History of Present Illness: Patient is a 43-year-old male presents to ED today for evaluation of an injury to his left lower extremity/laceration overlying his left knee that he sustained after walking and accidentally tripping and falling and hitting some rocks. Tetanus is up-to-date. He is ambulatory on the extremity. Onset (ago): hour(s) Extremity Location: Left: knee and lower leg Place: outdoors Patient tetanus UTD: Yes Context: accidental Associated symptoms: Reports no associated symptoms Review of Systems Musc: Reports: extremity pain and joint pain; Denies: neck pain, back pain, extremity swelling or joint swelling Skin/Breast: Reports: other (laceration) Neuro: Denies: numbness in extremities, weakness in extremities, sensory changes or difficulty walking PFS ED PFSH: Medical History Ureteral calculus Lower urinary tract symptoms (LUTS) Urolithiasis Surgical History Status post surgery perianal fistulotomy Status post colonoscopy H/O esophagogastroduodenoscopy History of colon surgery colon abscess H/O lithotripsy History of orchiectomy, bilateral Family History Father No problems noted. Mother , at ag 70 Diabetes Social History Smoking and tobacco/nicotine status: current every day tobacco/nicotine user cigarettes Packs smoked per day: 1.5 Quit status (tobacco/nicotine): has tried quititng Second hand smoke exposure: No Alcohol intake: current Alcohol intake frequency: holidays/special occasions only Substance/Drug Use: current Substance/Drug use frequency: daily Adopted: No Caregiver/support person: Yes Lives independently: No Housing: House Marital status: Single Current occupational status: disabled Physical Exam Const: COMMON NORMALS: no acute distress, no limitations, alert and well nourished GENERAL APPEARANCE: cooperative Extremity: COMMON NORMALS: full ROM and capillary refill normal GENERAL: Yes normal exam except as noted LEFT LOWER EXTREMITY: Yes knee joint (small 1cm laceration anterior knee) Left knee: Yes ROM (normal) and Yes neurovascular exam (normal) and Yes lower leg (anterior contusions/minimal abrasions) Left lower leg: Yes neurovascular exam (normal) Neuro: COMMON NORMALS: moves all extremities, no focal motor deficits, no sensory deficits noted and gait normal SENSORIUM/ORIENTATION: Yes alert Skin: TRAUMA: laceration Procedures Laceration Laceration 1: Site: lower extremity (knee) Side (If applicable): left Size (cm): 1.0 Description: irregular Depth: simple, single layer Local Anesthetic: lidocaine 1% and with epi Amount of anesthesia used (mL): 2.0 Pre-repair: wound explored and irrigated extensively Skin layer closed with: other (Prolene) Size (cm): 4-0 Number of sutures: 2 Technique: simple, interrupted Course Vital Signs: Vital signs: Vital Signs Temperature 98.4 F 06/04/24 14:51 Pulse Rate 98 06/04/24 16:13 Respiratory Rate 18 06/04/24 16:13 Blood Pressure 136/73 06/04/24 16:13 Pulse Oximetry 97 06/04/24 16:13 Oxygen Delivery Me thod Room Air 06/04/24 14:51 MDM - Wound/Laceration Medical Decision Making Small laceration was copiously irrigated and repaired as documented. Wound care/infection precautions discussed. XR interpretation done by ED provider, pending radiology final review ED provider radiology interpretation(s): XR interpretation done by ED provider, pending radiology final review ED provider radiology interpretation(s): No acute fractures noted On knee film on lateral projection there is small possible foreign bodies noted Discharge Plan Discharge Patient Disposition: Home Clinical Impression: Contusion of left leg Qualifiers: Encounter type: initial encounter Qualified Code(s): S80.12XA - Contusion of left lower leg, initial encounter Laceration of left knee Qualifiers: Encounter type: initial encounter Qualified Code(s): S81.012A - Laceration without foreign body, left knee, initial encounter Condition: Stable Prescriptions: No Action buspirone 15 mg tablet 15 mg PO BID Qty: 60 2RF ropinirole 1 mg tablet 1 mg PO TID Qty: 270 3RF tamsulosin [Flomax] 0.4 mg capsule 0.4 mg PO DAILY Qty: 90 3RF pantoprazole [Protonix] 40 mg tablet,delayed release (DR/EC) 40 mg PO BID 42 Days Qty: 84 0RF pantoprazole [Protonix] 40 mg tablet,delayed release (DR/EC) 40 mg PO ONCE 30 Days Qty: 30 3RF Rx Instructions: Start the 1 tab daily of protonix once you have finished the twice daily script Celexa 40 mg tablet 40 mg PO DAILY Qty: 90 3RF testosterone [AndroGel] 20.25 mg/1.25 gram (1.62 %) gel in metered-dose pump 1 pump topical .AT BEDTIME Qty: 75 3RF Rx Instructions: apply 1 pump amount ON EACH ARM AT NIGHT Discharge Orders: Discharge ED (Routine); Ordered 06/04/24 Ordered By: Oralia Castaneda Referrals: Kimani Paredes DO [Primary Care Provider] - Patient Instructions: Care For Your Stitches (DC), Laceration (DC) Activity Restrictions/Additional Instructions: Keep wound/laceration clean with warm soap and water twice daily. Monitor for signs of infection such as redness, swelling, increased pain, or drainage. Please seek medical re-evaluation if these occur. If you received sutures today these will need to be removed (unless you were told by the provider that they are absorbable). The provider should have discussed with you the length of time until removal-7 DAYS. Coding Level of Care Code ED Senior Qa Tester for Ben Mcclure
--- NOTE | 2024-06-04 15:02 | XRR_ITS ---
PROCEDURE INFORMATION: Exam: XR Left Tibia and Fibula Exam date and time: 06/04/2024 3:35 PM Age: 43 years old Clinical indication: Injury or trauma; Fall; Blunt trauma; Lower leg; Left TECHNIQUE: Imaging protocol: Radiologic exam of the left tibia and fibula. Views: 2 views. COMPARISON: CR XR knee LT 3V* [id number] 06/04/2024 3:35 PM FINDINGS: Bones/joints: Normal. Soft tissues: Normal. XR/XR tibia fibula LT 2V [id number] IMPRESSION: No acute findings.
--- NOTE | 2024-06-04 15:02 | XRR_ITS ---
PROCEDURE INFORMATION: Exam: XR Left Knee Exam date and time: 06/04/2024 3:35 PM Age: 43 years old Clinical indication: Injury or trauma; Fall; Blunt trauma and laceration; Left; Patella or knee; Foreign body involvement not specified TECHNIQUE: Imaging protocol: Radiologic exam of the left knee. Views: 3 views. COMPARISON: CR (LOW EXM, ) 06/04/2024 3:35 PM FINDINGS: Bones/joints: Normal. Soft tissues: Normal. XR/XR knee LT 3V* [id number] IMPRESSION: No acute findings.
[2024-06-04 16:13] VITALS: BP 136/73; PULSE 98; RESP 18; O2SAT 97
== END 2024-06-04 16:11 | disposition home or self-care (01) ==
PROVIDERS: Emergency Provider Physician Assistant; PCP Family Medicine
DX: S80.12XA Contusion of left lower leg, initial encounter (principal); S81.012A Laceration without foreign body, left knee, initial encounter; F17.210 Nicotine dependence, cigarettes, uncomplicated; W01.0XXA Fall on same level from slipping, tripping and stumbling without subsequent striking against object, initial encounter
CPT/HCPCS: 12001; 73562; 73590; 99283

== ENCOUNTER 2024-09-28 08:51 | Emergency (ER) | payer MEDICARE, SELFPAY ==
[2024-09-28 09:14] VITALS: BP 140/80; PULSE 89; RESP 18; TEMP 36.6; O2SAT 99; BMI 20.2
--- NOTE | 2024-09-28 10:13 | XR_ITS ---
WS: [id number] Exam: XR hand RT min 3V* [id number] Date/Time of Exam: 09/28/2024 10:26 AM Reason For Exam: injury There is a fracture through the midportion of the scaphoid. The fracture lines are somewhat sclerotic suggesting that this is subacute or old. The fracture line is open. No other fractures of the hand a re noted. The joints are preserved. Normal soft tissues. XR/XR hand RT min 3V* [id number] IMPRESSION: 1. Fracture through the midportion of the scaphoid with open fracture line. The fracture shows sclerotic margins suggesting that this is subacute or old. No o ther fractures noted.
--- NOTE | 2024-09-28 10:13 | XR_ITS ---
WS: [id number] Exam: XR lumbar spine 2-3V* [id number] Date/Time of Exam: 09/28/2024 10:27 AM Reason For Exam: pain No fracture noted. Degenerative facet change at L4-5 and L5-S1. Disc spaces are preserved. Osteopenia . Posterior elements are intact otherwise. XR/XR lumbar spine 2-3V* [id number] IMPRESSION: 1. Mild degenerative change and osteopenia. 2. No fracture or malalignment. Slight levoscoliosis.
--- NOTE | 2024-09-28 10:23 | W.ED.BACK ---
HPI - Back Pain/Injury General: Chief Complaint: Back Pain/Injury Stated Complaint: Hip and back pain, little finger injury Time Seen by Provider: 09/28/24 09:19 Source: patient Mode of arrival: ambulatory Limitations: no limitations History of Present Illness: 43-year-old male who states that he had been doing heavy lifting 3 weeks ago and has been having left lower back pain since then. He states it is a sharp pain radiates down his leg is worse with movement palpation rates pain a 9 out of 10 denies any bowel or bladder incontinence he is ambulatory here. He states also 3 days ago he smashed his right middle finger in a car door having some slight pain at that site. Associated symptoms: Deny abdominal pain, chills, fever(s), nausea or vomiting Related Data Home Medications Medication Instructions Recorded Confirmed pantoprazole 40 mg tablet,delayed 40 mg PO DAILY 09/28/24 09/28/24 release (Protonix) Previous Rx's Medication Instructions Recorded citalopram 40 mg tablet (Celexa) 40 mg PO DAILY #90 tabs 11/25/22 buspirone 15 mg tablet 15 mg PO BID #60 tabs 02/24/23 ropinirole 1 mg tablet 1 mg PO TID #270 tabs 02/24/23 tamsulosin 0.4 mg capsule (Flomax) 0.4 mg PO DAILY #90 caps 02/24/23 testosterone (AndroGel) 1 pump topical .AT BEDTIME #75 05/09/24 grams methocarbamol 750 mg tablet 750 mg PO Q6H PRN spasms #20 tabs 09/28/24 naproxen 500 mg tablet (Naprosyn) 500 mg PO BID PRN pain #20 tabs 09/28/24 prednisone 50 mg tablet 50 mg PO DAILY #5 tabs 09/28/24 Allergies Allergy/AdvReac Type Severity Reaction Status Date / Time testosterone [From Androderm] Allergy redness at Verified 06/11/24 13:30 patch site codeine AdvReac makes me Verified 06/11/24 13:30 feel funny Review of Systems Const: Denies: fever(s), chills, body aches or change in appetite ENMT: Denies: throat pain or dental pain Card: Denies: chest pain Resp: Denies: dyspnea GI: Denies: abdominal pain, nausea, vomiting or diarrhea : Denies: difficulty urinating Musc: Reports: back pain and extremity pain; Denies: neck pain Skin/Breast: Denies: rash Neuro: Denies: headache(s) PFSH ED PFSH: Medical History Ureteral calculus Lower urinary tract symptoms (LUTS) Urolithiasis Surgical History Status post surgery perianal fistulotomy Status post colonoscopy H/O esophagogastroduodenoscopy History of colon surgery colon abscess H/O lithotripsy History of orchiectomy, bilateral Family History Father No problems noted. Mother , at ag 70 Diabetes Social History Smoking and tobacco/nicotine status: current every day tobacco/nicotine user cigarettes Packs smoked per day: 1.5 Quit status (tobacco/nicotine): has tried quititng Second hand smoke exposure: No Alcohol intake: current Alcohol intake frequency: holidays/special occasions only Substance/Drug Use: current Substance/Drug use frequency: daily Adopted: No Caregiver/support person: Yes Lives independently: No Housing: House Marital status: Single Current occupational status: disabled Physical Exam Const: COMMON NORMALS: no acute distress, patient oriented x3 and healthy appearing HENMT: COMMON NORMALS: normocephalic and atraumatic HEAD & SCALP: normocephalic and atraumatic Eye: COMMON NORMALS: Equal, round and reactive pupils present and EOMs intact bilaterally PUPIL: Yes Equal, round and reactive pupils present Neck/C-Spine: COMMON NORMALS: full ROM Chest: COMMONS NORMALS: normal inspection of the chest Resp: COMMON NORMALS: normal respiratory effort Cardio: COMMON NORMALS: regular rate RATE: regular rate Back/Pelvis: OTHER: Tenderness over left lower back no midline tenderness no saddle anesthesia Extremity: COMMON NORMALS: normal to inspection and full ROM NARRATIVE EXTREMITY EXAM: Some slight tenderness to right middle finger no obvious deformity Neuro: COMMON NORMALS: patient oriented x3, moves all extremities and no focal motor deficits Psych: COMMON NORMALS: mental status grossly normal, Normal thought process present and cooperative THOUGHT PROCESS: Normal thought process present Skin: COMMON NORMALS: no rashes or lesions noted and no wounds GENERAL SKIN EXAM: no rashes or lesions noted Course Vital Signs: Vital signs: Vital Signs Temperature 97.9 F 09/28/24 09:14 Pulse Rate 69 09/28/24 11:24 Respiratory Rate 18 09/28/24 09:14 Blood Pressure 134/80 09/28/24 11:24 Pulse Oximetry 98 09/28/24 11:24 Oxygen Delivery Me thod Room Air 09/28/24 11:04 MDM - Back Pain/Injury Medical Decision Making Patient presents here with back pain is likely muscular in nature he has no signs of cauda equina no signs of epidural abscess he is stable for discharge follow-up PCP return if worsening. Medical Records I reviewed the patient's medical records. Labs Radiology Impressions Hand X-Ray 09/28/24 10:13 IMPRESSION: 1. Fracture through the midportion of the scaphoid with open fracture line. The fracture shows sclerotic margins suggesting that this is subacute or old. No other fractures noted. Lumbar Spine X-Ray 09/28/24 10:13 IMPRESSION: 1. Mild degenerative change and osteopenia. 2. No fracture or malalignment. Slight levoscoliosis. All radiology interpretation(s) finalized by discharge Discharge Plan Discharge Patient Disposition: Home Clinical Impression: Low back pain Qualifiers: Chronicity: acute Back pain laterality: left Sciatica presence: with sciatica Sciatica laterality: sciatica of left side Qualified Code(s): M54.42 - Lumbago with sciatica, left side Condition: Stable Prescriptions: New methocarbamol 750 mg tablet 750 mg PO Q6H PRN (Reason: spasms) Qty: 20 0RF prednisone 50 mg tablet 50 mg PO DAILY Qty: 5 0RF naproxen [Naprosyn] 500 mg tablet 500 mg PO BID PRN (Reason: pain) Qty: 20 0RF No Action buspirone 15 mg tablet 15 mg PO BID Qty: 60 2RF ropinirole 1 mg tablet 1 mg PO TID Qty: 270 3RF tamsulosin [Flomax] 0.4 mg capsule 0.4 mg PO DAILY Qty: 90 3RF Celexa 40 mg tablet 40 mg PO DAILY Qty: 90 3RF testosterone [AndroGel] 20.25 mg/1.25 gram (1.62 %) gel in metered-dose pump 1 pump topical .AT BEDTIME Qty: 75 3RF pantoprazole [Protonix] 40 mg tablet,delayed release (DR/EC) 40 mg PO DAILY Discharge Orders: Discharge ED (Routine); Ordered 09/28/24 Ordered By: Criselda Lira Referrals: Kmiani Paredes DO [Primary Care Provider] - Discharge Diet: Advance as tolerated Discharge Activity: Resume usual activity Patient Instructions: Acute Low Back Pain (ED) Coding Level of Care Code ED Front Desk Coordinator for Ben Mcclure
--- NOTE | 2024-09-28 10:30 | PC.PHAR ---
Pt states is in between pcp's since Dr Morales has left. Pt verified medications but most have not been filled in about 10 months. Pt states pain is bad enough that he can's sleep.
[2024-09-28] MEDS: HYDROcodone-acetaminophen 7.5-325 mg Tablet 1 TAB PO (10:57)
[2024-09-28] MEDS: methocarbamol 750 mg Tablet 1500 MG PO (10:58)
[2024-09-28] MEDS: dexamethasone 10 mg/mL INJ IM (11:00)
[2024-09-28] MEDS: ketorolac 30 mg/mL INJ IM (11:01)
[2024-09-28 11:04] VITALS: BP 134/80; PULSE 73; O2SAT 98
[2024-09-28 11:24] VITALS: BP 134/80; PULSE 69; O2SAT 98
== END 2024-09-28 11:24 | disposition home or self-care (01) ==
PROVIDERS: Emergency Provider Emergency Medicine; PCP Family Medicine
DX: M54.42 Lumbago with sciatica, left side (principal); F17.210 Nicotine dependence, cigarettes, uncomplicated
CPT/HCPCS: 72100; 73130; 96372; 99284; J1100; J1885

== ENCOUNTER → 2025-02-16 08:53 | Outpatient (BNVA) | payer MEDICARE, SELFPAY | PROVIDERS: PCP Family Medicine; Visit Provider Family Medicine | DX: E29.1 Testicular hypofunction (principal); N40.0 Benign prostatic hyperplasia without lower urinary tract symptoms; Z12.5 Encounter for screening for malignant neoplasm of prostate | CPT/HCPCS: 80053; 84153; 84403; 85025 ==

== ENCOUNTER 2025-08-14 12:58 | Emergency (ER) | payer MEDICARE, SELFPAY ==
--- OUTSIDE RECORDS SUMMARY | 2024-04-30 04:00 | XMS_ITS ---
Author Organization [facility] Address [address] [place] [address] Care Team Providers Care Bleach Tester Name Role Phone RIYA LÓPEZ Primary Care Provider Unavailabl e Riya López Unavailable [phone] Migration, Provider Unavailable Unavailable REASON FOR VISIT EMR-David Encounters Encounter Location Date Provider Diagnosis Migrated_Facility 0 0 04/30/2024 Provider Migration Plan Of Treatment No Information Progress Notes * Hussein DE LA CRUZDOB:1979 (44 yo M)Acc No.[id number]:04/30/2024 Patient: Hussein WHITE :1980 A ge:43 Y S ex:Male Address:[address] [facility] [place] [address] Subjective: * Chief Complaints: * E MR-David * * Date:
--- OUTSIDE RECORDS SUMMARY | 2024-05-01 04:00 | XMS_ITS ---
Author Organization [facility] Address [address] [place] [address] Care Team Providers Care Produce Specialist Name Role Phone RENE RIYA Primary Care Provider Unavailabl Riya Davenport Unavailable [phone] Migration, Provider Unavailable Unavailable Allergies Allergen (clinical drug ingredient) Drug/Non Drug Allergy documented on EMR Reaction Allergy Type Onset Date Status codeine Codeine , Drug Allergy Active REASON FOR VISIT EMR-David Medications Medication SIG (Take, Route, Frequency, Duration) Notes Start Date End Date Status ropinirole 1 MG Oral Tablet *Reorder from [facility] for eRx and Interaction Alerts* 07/09/2023 10/07/2023 Active buspirone hydrochloride 15 MG Oral Tablet *Reorder from [facility] for eRx and Interaction Alerts* 07/09/2023 10/07/2023 Active Griseofulvin 500 MG Oral Tablet *Reorder from [facility] for eRx and Interaction Alerts* 07/09/2023 08/20/2023 Active Tamsulosin HCl 0.4 MG Capsule Oral 07/09/2023 07/03/2024 Active Pantoprazole Sodium 40 MG Tablet Delayed Release Oral 07/09/2023 07/03/2024 Active Ibuprofen 800 MG Oral Tablet *Reorder from [facility] for eRx and Interaction Alerts* 07/09/2023 12/30/2024 Active Citalopram 40 MG Oral Tablet *Reorder from [facility] for eRx and Interaction Alerts* 07/09/2023 10/07/2023 Active 60 ACTUAT Testosterone 20.25 MG/ACTUAT Topical Gel *Reorder from [facility] for eRx and Interaction Alerts* 07/09/2023 11/06/2023 Active Social History Social History Additional Details Category Social Info Options Details Migrated Social History Migrated Social History Alcohol intake : , History of tobacco use : Current everyday tobacco user , Smoking Status : Current everyday tobacco user Encounters Encounter Location Date Provider Diagnosis Migrated_Facility 0 0 05/01/2024 Provider Migration Plan Of Treatment No Information Progress Notes * Hussein DE LA CRUZ JDOB:1979 (44 yo M)Acc No.[id number]:05/01/2024 Patient: Hussein WHITE :1980 A ge:43 Y S ex:Male Address:[address] [place], [place] [address], [facility] Subjective: * Chief Complaints: * E MR-David * Family History: M other: PRN - Mother: :: Diabetes,,known absent . * Social History: M igrated Social History: M igrated Social History: Alcohol intake : , History of tobacco use : Current everyday tobacco user , Smoking Status : Current everyday tobacco user. * Medications: T akingPantoprazole Sodium 40 MG Tablet Delayed Release Oral , stop date 07/03/2024Tamsulosin HCl 0.4 MG Capsule Oral , stop date 07/03/2024uspirone hydrochloride 15 MG Oral Tablet , stop date 10/07/2023, Notes to Pharmacist: *[facility]*ropinirole 1 MG Oral Tablet , stop date 10/07/2023, Notes to Pharmacist: *[facility] and Interaction Alerts*Griseofulvin 500 MG Oral Tablet , stop date 08/20/2023, Notes to Pharmacist: *[facility] for [facility]Rx and Interaction Alerts*60 ACTUAT Testosterone 20.25 MG/ACTUAT Topical Gel , stop date 11/06/2023, Notes to Pharmacist: *[facility] for [facility] and Interaction Alerts*Citalopram 40 MG Oral Tablet , stop date 10/07/2023, Notes to Pharmacist: *[facility] for [facility]Rx and Interaction Alerts*Ibuprofen 800 MG Oral Tablet , stop date 12/30/2024, Notes to Pharmacist: *Re[facility] from [facility] for [facility]Rx and Interaction Alerts*Taking Pantoprazole Sodium 40 MG Tablet Delayed Release Oral , stop date 07/03/2024Taking Tamsulosin HCl 0.4 MG Capsule Oral , stop date 07/03/2024Taking buspirone hydrochloride 15 MG Oral Tablet , stop date 10/07/2023, Notes to Pharmacist: *Reorder from [facility] for eRx and Interaction Alerts*Taking ropinirole 1 MG Oral Tablet , stop date 10/07/2023, Notes to Pharmacist: *Reorder from [facility] for eRx and Interaction Alerts*Taking Griseofulvin 500 MG Oral Tablet , stop date 08/20/2023, Notes to Pharmacist: *Reorder from [facility] for eRx and Interaction Alerts*Taking 60 ACTUAT Testosterone 20.25 MG/ACTUAT Topical Gel , stop date 11/06/2023, Notes to Pharmacist: *Reorder from [facility] for eRx and Interaction Alerts*Taking Citalopram 40 MG Oral Tablet , stop date 10/07/2023, Notes to Pharmacist: *Reorder from [facility] for eRx and Interaction Alerts*Taking Ibuprofen 800 MG Oral Tablet , stop date 12/30/2024, Notes to Pharmacist: *Reorder from [facility] for eRx and Interaction Alerts* * Allergies: C odeine: , - Allergy * * Date:
--- OUTSIDE RECORDS SUMMARY | 2025-08-14 13:05 | XMS_ITS | Patient Health Record ---
Author Organization [facility] Address [address] [place] [address] Care Team Providers Care Tug Captain Name Role Phone RENE RIYA Primary Care Provider Riya Vyas Unavailable [phone] Allergies Allergen (clinical drug ingredient) Drug/Non Drug Allergy documented on EMR Reaction Allergy Type Onset Date Status codeine Codeine , Drug Allergy Active Reason For Referral No Information Medications Medication SIG (Take, Route, Frequency, Duration) Notes Start Date End Date Status 1250 MG Testosterone 0.0162 MG/MG Topical Gel 1250 MG Testosterone 0.0162 MG/MG Topical Gel 06/02/2019 Active rOPINIRole HCl 1 MG Tablet TAKE 1 TABLET BY MOUTH THREE TIMES DAILY; Duration: 90 Active Testosterone 1.62 % Gel APPLY 1 PUMP ON EACH ARM EVERY NIGHT AT BEDTIME; Duration: 30 11/12/2022 Active Citalopram Hydrobromide 40 MG Tablet TAKE 1 TABLET BY MOUTH DAILY; Duration: 30 Active busPIRone HCl 15 MG Tablet TAKE 1 TABLET BY MOUTH TWICE DAILY; Duration: 30 Active ropinirole 1 MG Oral Tablet ropinirole 1 MG Oral Tablet 06/28/2019 Active Tamsulosin hydrochloride 0.4 MG Oral Capsule Tamsulosin hydrochloride 0.4 MG Oral Capsule 06/28/2019 Active buspirone hydrochloride 15 MG Oral Tablet buspirone hydrochloride 15 MG Oral Tablet 07/05/2019 Active Immunizations Vaccine Route Administration Date Status Comme nts Influenza (whole), CPT 30837 Inactive Unknown 08/29/2019 Administered Social History Tobacco Use: Social History Observation Description Date Details (start date - stop date) Current Smoker NA - NA Social History Depression Screening Social Info Question Answer Notes PHQ-9 Little interest or p aryan in doing things More than half the days Feeling down, depressed, or hopeless Nearly ever y day Trouble falling or staying asleep, or sleeping t oo much Several days Feeling tired or having little energy Not at all Poor appetite or overeating Not at all Feeling bad about yourself, or that you are a failure, or have let yourself or your family down Not at all Trouble concentrating on thi ngs, such as reading the newspaper or watching television Not at all Moving or speaking so slowly that other people could have noticed. Or the opposite ? being so fidgety or restless that you have been moving around a lot more than usual Several days Thoughts that you would be b chris off , or of hurting yourself in some way Not at all Total Score 7 Interpretation Mild Depression Drugs/Alcohol: Social Info Question Answer Notes Alcohol Screen (Audit-C) Did you have a drink containing alcohol in the past year? Yes How often did you have a drink containing alcohol in the past year? Monthly or less (1 point) How many drinks did you have on a typical day when you were drinking in the past year? 1 or 2 drinks (0 point) How often did you have 6 or more drinks on one occasion in the past year? Never (0 point) Points 1 Interpretation Negative Drugs Have you used drugs other than those for medical reasons in the past 12 months? Yes Marijuana? Yes Tobacco Use: Social Info Question Answer Notes xTobacco Use/Smoking Are you a current smoker How often do you smoke cigarettes? every day How many cigarettes a day do you smoke? 11-20 How soon after you wake up do you smoke your first cigarette? 31-60 minutes Are you interested in quitting? Thinking about quitting Tobacco use other than smoking: Are you an other tobac co user? No Additional Details Category Social Info Options Details Drugs/Alcohol: Do you smoke marijuana? Ad mits Do you drink alcohol? No Migrated Social History Migrated Social History Alcohol intake : , History of tobacco use : Current everyday tobacco user , Smoking Status : Current everyday tobacco user zzMigrated Social History Migrated Social History Smoking Status:Heavy tobacco smoker (finding) Smoking Status:Smokes tobacco daily (finding) Problems Problem Type SNOMED Code ICD Code Onset Dates Problem Status W/U Status Risk Notes Problem Testicular hypofunction (883230371) Testicular hypofunction (E29.1) Active confirmed Problem Low testosterone (729797592) Low testosterone (R79.89) Active confirmed Problem Dysthymia (28952401) Dysthymia (F34.1) Active confirmed Problem Restless legs (09599281) RLS (restless legs syndrome) (G25.81) Active confirmed Problem Anxiety depression (557677370) Anxiety with depression (F41.8) Active confirmed Problem Klinefelter syndrome (31280457) Klinefelter syndrome (Q98.4) Active confirmed Plan Of Treatment No Information Insurance Providers Payer Name Payer Address Payer Phone Subscriber Number Group Number Insured Name Patient Relationship to Insured Coverage Start Date Coverage End Date [employer] [address] [address] [place] [address] [id number] Hussein Kim Self - patient is the insured [place] Medicaid [address] [place] [address] [id number] Hussein Kim Self - patient is the insured Medical (General) History Medical History History ICD Code Problem:Anxiety (finding) , Status :: Ac tive Problem:Benign prostatic hyp ertroph with outflow obstruction (disorder) , Status :: Active Problem:Depression - motion (qualifier v alue) , Status :: Active Problem:Fatigue (finding) , Status :: Ac tive Problem:Klinefelter syndrome (disorder) , Status :: Active Problem:Restless legs (disorder) , Statu s :: Active Problem:Screening status (finding) , Sta tus :: Active Problem:Tobacco user (finding) , Status :: Active Problem:Vitamin D deficiency (disorder) , Status :: Active Klinefelter syndrome, unspecified Q98.4
--- OUTSIDE RECORDS SUMMARY | 2025-08-14 13:05 | XMS_ITS | Patient Health Record ---
Author Organization [facility] Address [address] [place] [address] Care Team Providers Care Customer Services Coordinator Name Role Phone Jose Raul Schreiber Primary Care Provider PEMA Mar Unavailable [phone] Morgan Montgomery Unavailable Unavailable Allergies Allergen (clinical drug ingredient) Drug/Non Drug Allergy documented on EMR Reaction Allergy Type Onset Date Status codeine Codeine , Drug Allergy Active Reason For Referral No Information Medications Medication SIG (Take, Route, Frequency, Duration) Notes Start Date End Date Status rOPINIRole HCl 1 MG TAKE 1 TABLET BY MOUTH THREE TIMES DAILY; Duration: 90 Active Testosterone 1.62 % APPLY 1 PUMP ON EACH ARM EVERY NIGHT AT BEDTIME; Duration: 30 11/12/2022 Active ropinirole 1 MG Oral Tablet ropinirole 1 MG Oral Tablet *Reorder from [facility] for eRx and Interaction Alerts* 06/28/2019 Active Citalopram Hydrobromide 40 MG TAKE 1 TABLET BY MOUTH DAILY; Duration: 30 Active 1250 MG Testosterone 0.0162 MG/MG Topical Gel 1250 MG Testosterone 0.0162 MG/MG Topical Gel *Reorder from [facility] for eRx and Interaction Alerts* 06/02/2019 Active busPIRone HCl 15 MG TAKE 1 TABLET BY MOUTH TWICE DAILY; Duration: 30 Active buspirone hydrochloride 15 MG Oral Tablet buspirone hydrochloride 15 MG Oral Tablet *Reorder from [facility] for eRx and Interaction Alerts* 07/05/2019 Active Tamsulosin hydrochloride 0.4 MG Oral Capsule Tamsulosin hydrochloride 0.4 MG Oral Capsule *Reorder from [facility] for eRx and Interaction Alerts* 06/28/2019 Active Immunizations Vaccine Route Administration Date Status Comme nts Influenza (whole), CPT 51665 Inactive Unknown 08/29/2019 Administered Problems Problem Type SNOMED Code ICD Code Onset Dates Problem Status W/U Status Risk Notes Problem Testicular hypofunction (054873834) Testicular hypofunction (E29.1) Active confirmed Problem Dysthymia (32845627) Dysthymia (F34.1) Active confirmed Problem Anxiety depression (809436699) Anxiety with depression (F41.8) Active confirmed Problem Restless legs (62387171) RLS (restless legs syndrome) (G25.81) Active confirmed Problem Klinefelter syndrome (24862102) Klinefelter syndrome (Q98.4) Active confirmed Problem Low testosterone (200817251) Low testosterone (R79.89) Active confirmed Plan Of Treatment No Information Insurance Providers Payer Name Payer Address Payer Phone Subscriber Number Group Number Insured Name Patient Relationship to Insured Coverage Start Date Coverage End Date [facility] [address] [address] [place], [place] [id number] Hussein Kim Self - patient is the insured [place] Medicaid [address] [place], [place] [id number] Hussein Kim Self - patient is the [...]
[2025-08-14 13:24] VITALS: BP 99/61; PULSE 59; RESP 16; TEMP 36.6; O2SAT 99; BMI 22.1
--- NOTE | 2025-08-14 13:28 | XR_ITS ---
WS: [id number] Left wrist, 3 views, 08/14/2025 Clinical Data: injury Comparison: None. Findings: There is a comminuted fracture of the diametaphyseal region of the distal left radius. The distal fracture fragment is dislocated dorsally. There is probably an ulnar styloid fracture. There is soft tissue swelling at the fracture site. XR/XR wrist LT min 3V* [id number] Impression: Comminuted fracture of distal right radius and probable ulnar styloid fracture.
--- NOTE | 2025-08-14 13:28 | ED_ITS ---
Documented by User: EMIR Balderas 08/14/25 14:58 HPI - Extremity Injury (Upper) General: Chief Complaint: Extremity Injury, Upper Stated Complaint: L wrist pain Time Seen by Provider: 08/14/25 13:24 Source: patient and family Mode of arrival: wheelchair Limitations: no limitations History of Present Illness: Patient is a 44-year-old male presents to ED today for evaluation of a left wrist injury that he sustained just prior to arrival after accidentally tripping and falling and landing onto the left wrist. He arrives with deformity to the left wrist. He denies numbness, tingling, loss of sensation. No other injury sustained during the fall. MD complaint: injury to: left and wrist Onset (ago): hour(s) Other Extremity Injury: Left: wrist Other injuries: none Place: home Severity: severe Relieving factors: immobilization Exacerbating factors: movement of extremity Context: fall Associated symptoms: Reports no associated symptoms Related Data Home Medications ?Medication ?Instructions ?Recorded ?Confirmed pantoprazole 40 mg tablet,delayed 40 mg PO DAILY PRN 0 12/29/24 02/16/25 release Previous Rx's ?Medication ?Instructions ?Recorded citalopram 40 mg tablet (Celexa) 40 mg PO DAILY #90 ta bs 12/29/24 propranolol 10 mg tablet 10 mg PO BID #60 tabs ropinirole 1 mg tablet 1 mg PO TID #270 tabs tamsulosin 0.4 mg capsule (Flomax) 0.4 mg PO DAILY #90 caps 12/29/24 testosterone (AndroGel) 1 pump topical .AT BEDTIME # 75 12/29/24 grams hydrocodone 5 mg-acetaminophen 325 1 tab PO Q6H PRN pa in #14 tabs 08/14/25 mg tablet Allergies Allergy/AdvReac Type Severity Reaction Status Date / Time testosterone (From Androderm) Allergy redness at Verified 02/16/25 08:28 patch site codeine AdvReac makes me Verified 02/16/25 08:28 feel funny Review of Systems Musc: Reports: joint pain (L wrist), joint swelling (L wrist) and limited range of motion (L wrist); Denies: extremity pain or extremity swelling Neuro: Denies: numbness in extremities or sensory changes PFS ED PFSH: Medical History RLS (restless legs syndrome) BPH (benign prostatic hyperplasia) Ureteral calculus Lower urinary tract symptoms (LUTS) Urolithiasis Surgical History Status post surgery perianal fistulotomy Status post colonoscopy H/O esophagogastroduodenoscopy History of colon surgery colon abscess H/O lithotripsy History of orchiectomy, bilateral Family History Father No problems noted. Mother , at ag 70 Diabetes Social History Smoking and tobacco/nicotine status: current every day tobacco/nicotine user cigarettes Packs smoked per day: 1.5 [ Other cigarette details: 1 PPD, 26PY] Quit status (tobacco/nicotine): has tried quititng Second hand smoke exposure: No Alcohol intake: current Alcohol intake frequency: holidays/special occasions only Substance/Drug Use: current Substance/Drug use frequency: daily Adopted: No Caregiver/support person: Yes Lives independently: No Housing: House Marital status: Single Current occupational status: disabled Physical Exam Const: COMMON NORMALS: average body habitus, patient oriented x3, no limitations and alert GENERAL APPEARANCE: cooperative and in distress (appears uncomfortable secondary to pain) Extremity: COMMON NORMALS: capillary refill normal GENERAL: Yes normal exam except as noted LEFT UPPER EXTREMITY: Yes wrist (deformity consistent with fracture to L wrist) Left wrist: Yes ROM (limited secondary to pain/deformity) and Yes neurovascular exam (normal) Neuro: COMMON NORMALS: patient oriented x3, moves all extremities, no focal motor deficits and no sensory deficits noted SENSORIUM/ORIENTATION: Yes alert Procedures Orthopedic Fracture Reduction Fracture #1: Time Out Performed: Yes Side: left Fracture Reduction Location: radius Analgesia: procedural sedation Technique: traction/counter-traction Post Reduction X-rays Demonstrate: acceptable reduction Post-reduction neuro exam: intact Post-reduction vascular exam: intact Splint Applied: Yes Patient Tolerated Procedure: well Additional Comments: Dr. Wayne present during entire procedure. Please see his note for conscious sedation. Course Consultations: Consultation #1: Dr. Peña-recommends attempted reduction, sugar tong splint, f/u in office as fracture will require surgery Vital Signs: Vital signs: Vital Signs Temperature 97.9 F 08/14/25 13:24 Pulse Rate 74 08/14/25 14:55 Respiratory Rate 15 08/14/25 14:55 Blood Pressure 129/78 08/14/25 14:55 Pulse Oximetry 100 08/14/25 14:55 Oxygen Delivery Me thod Nasal Cannula 08/14/25 14:40 Oxygen Flow Rate 2 08/14/25 14:40 MDM - Extremity Injury (Upper) Medical Decision Making Patient here for an angulated comminuted distal radial fracture following a trip and fall. Patient underwent conscious sedation and successful reduction of fracture. Consulted with Dr. Peña who recommends sugar-tong splint and follow- up in office as this most likely will require surgery. Please see Dr. Wayne's note for conscious sedation portion of examination. Extremity is neurovascularly intact before and after procedure. Medical Records I reviewed the patient's medical records. Lab Data Radiology Impressions Wrist X-Ray 08/14/25 14:43 Impression: Reduction of distal left radial fracture. All radiology interpretation(s) finalized by discharge Discharge Plan Discharge Patient Disposition: Home Clinical Impression: Distal radius fracture, left Qualifiers: Encounter type: initial encounter Fracture type: closed Fracture morphology: unspecified fracture morphology Qualified Code(s): S52.502A - Unspecified fracture of the lower end of left radius, initial encounter for closed fracture Condition: Stable Prescriptions: New hydrocodone-acetaminophen 5-325 mg tablet 1 tab PO Q6H PRN (Reason: pain) Qty: 14 0RF No Action tamsulosin [Flomax] 0.4 mg capsule 0.4 mg PO DAILY Qty: 90 3RF ropinirole 1 mg tablet 1 mg PO TID Qty: 270 3RF pantoprazole 40 mg tablet,delayed release (DR/EC) 40 mg PO DAILY PRN Celexa 40 mg tablet 40 mg PO DAILY Qty: 90 3RF propranolol 10 mg tablet 10 mg PO BID Qty: 60 1RF testosterone [AndroGel] 20.25 mg/1.25 gram (1.62 %) gel in metered-dose pump 1 pump topical .AT BEDTIME Qty: 75 3RF Discharge Orders: Discharge ED (Routine); Ordered 08/14/25 Ordered By: Oralia Castaneda Referrals: Osmani Underwood MD [Primary Care Provider, Family Practice] Patient Instructions: Wrist Fracture in Adults (ED), ORIF of a Wrist Fracture (DC), Opioid Safety, Pain Management, Patient Portal & Jam Instructions Activity Restrictions/Additional Instructions: Your wrist fracture was reduced here in the emergency department and was splinted. Case management should be reaching out to you this week to help set you up with your follow-up orthopedic appointment as this most likely will require surgery. Please fill your pain medications and take them sparingly as needed for significant discomfort. Print Language: Venezuelan Coding Level of Care Code ED Rn Occupational Health for Chg Fwd Documented by User: Deidra Wayne MD 08/14/25 15:52 HPI - Extremity Injury (Upper) General: Chief Complaint: Extremity Injury, Upper Stated Complaint: L wrist pain Time Seen by Provider: 08/14/25 13:24 Related Data Home Medications ?Medication ?Instructions ?Recorded ?Confirmed pantoprazole 40 mg tablet,delayed 40 mg PO DAILY PRN 0 12/29/24 02/16/25 release Previous Rx's ?Medication ?Instructions ?Recorded citalopram 40 mg tablet (Celexa) 40 mg PO DAILY #90 ta bs 12/29/24 propranolol 10 mg tablet 10 mg PO BID #60 tabs ropinirole 1 mg tablet 1 mg PO TID #270 tabs tamsulosin 0.4 mg capsule (Flomax) 0.4 mg PO DAILY #90 caps 12/29/24 testosterone (AndroGel) 1 pump topical .AT BEDTIME # 75 12/29/24 grams hydrocodone 5 mg-acetaminophen 325 1 tab PO Q6H PRN pa in #14 tabs 08/14/25 mg tablet Allergies Allergy/AdvReac Type Severity Reaction Status Date / Time testosterone (From Androderm) Allergy redness at Verified 02/16/25 08:28 patch site codeine AdvReac makes me Verified 02/16/25 08:28 feel funny [facility] ED PFSH: Medical History RLS (restless legs syndrome) BPH (benign prostatic hyperplasia) Ureteral calculus Lower urinary tract symptoms (LUTS) Urolithiasis Surgical History Status post surgery perianal fistulotomy Status post colonoscopy H/O esophagogastroduodenoscopy History of colon surgery colon abscess H/O lithotripsy History of orchiectomy, bilateral Family History Father No problems noted. Mother , at ag 70 Diabetes Social History Smoking and tobacco/nicotine status: current every day tobacco/nicotine user cigarettes Packs smoked per day: 1.5 [ Other cigarette details: 1 PPD, 26PY] Quit status (tobacco/nicotine): has tried quititng Second hand smoke exposure: No Alcohol intake: current Alcohol intake frequency: holidays/special occasions only Substance/Drug Use: current Substance/Drug use frequency: daily Adopted: No Caregiver/support person: Yes Lives independently: No Housing: House Marital status: Single Current occupational status: disabled Course Vital Signs: Vital signs: Vital Signs Temperature 97.9 F 08/14/25 13:24 Pulse Rate 74 08/14/25 14:55 Respiratory Rate 15 08/14/25 14:55 Blood Pressure 129/78 08/14/25 14:55 Pulse Oximetry 100 08/14/25 14:55 Oxygen Delivery Me thod Nasal Cannula 08/14/25 14:40 Oxygen Flow Rate 2 08/14/25 14:40 MDM - Extremity Injury (Upper) Medical Decision Making Patient here for an angulated comminuted distal radial fracture following a trip and fall. Patient underwent conscious sedation and successful reduction of fracture. Consulted with Dr. Peña who recommends sugar-tong splint and follow- up in office as this most likely will require surgery. Please see Dr. Wayne's note for conscious sedation portion of examination. Extremity is neurovascularly intact before and after procedure. Procedural sedation Time: See nursing documentation Confirmed: Patient and procedure correct. Consent: Consent: The risks and benefits of monitored anesthesia care, including the risk of aspiration, nausea/vomiting and the risks of not performing the procedure, including severe pain and inability to complete the procedure, were all discussed with the patient. The alternatives of performing the procedure, including local anesthesia and IV analgesia, also discussed. The patient has a ride home available Indication: Closed reduction. Monitoring: Cardiac, blood pressure, continuous pulse oximetry. Preparation: Suction, IV access, Constant attendance, Supplemental oxygen. ASA Class: I- healthy patient. No significant family history of sedation complications See ER physician note for summary of the patient's present medication list and for drug allergy and intolerance history Physical exam: Airway: appears normal, Heart: regular rate and rhythm, Breath sounds: equal. Pre sedation vital signs: See nurse's notes. Procedural sedation: 100 mg IV propofol. . Post sedation vital signs: See nurse's notes. Patient tolerated: Well. Complications: The patient was recovered from the sedation without complication or incident. Post sedation condition: Patient returned to pre-sedation level of awareness. The monitoring was discontinued at this time. Performed by: Self. Notes: Pt attended by independent trained observer time of sedation was 15 minutes. . The case was discussed with: the nurse practitioner. Evaluation and management service: I agree with the evaluation and management decisions made in this patient's care. Results interpretation: I agree with the study interpretation in this patient's care, I agree with the documentation of the study interpretation. I have examined the patient personally. Splint placed. Patient back alert and to his normal self. Neurovascularly intact. Lab Data Radiology Impressions Wrist X-Ray 08/14/25 14:43 Impression: Reduction of distal left radial fracture. Discharge Plan Discharge Patient Disposition: Home Clinical Impression: Distal radius fracture, left Qualifiers: Encounter type: initial encounter Fracture type: closed Fracture morphology: unspecified fracture morphology Qualified Code(s): S52.502A - Unspecified fracture of the lower end of left radius, initial encounter for closed fracture Condition: Stable Prescriptions: New hydrocodone-acetaminophen 5-325 mg tablet 1 tab PO Q6H PRN (Reason: pain) Qty: 14 0RF No Action tamsulosin [Flomax] 0.4 mg capsule 0.4 mg PO DAILY Qty: 90 3RF ropinirole 1 mg tablet 1 mg PO TID Qty: 270 3RF pantoprazole 40 mg tablet,delayed release (DR/EC) 40 mg PO DAILY PRN Celexa 40 mg tablet 40 mg PO DAILY Qty: 90 3RF propranolol 10 mg tablet 10 mg PO BID Qty: 60 1RF testosterone [AndroGel] 20.25 mg/1.25 gram (1.62 %) gel in metered-dose pump 1 pump topical .AT BEDTIME Qty: 75 3RF Discharge Orders: Discharge ED (Routine); Ordered 08/14/25 Ordered By: Oralia Castaneda Referrals: Osmani Underwood MD [Primary Care Provider, Family Practice] Patient Instructions: Wrist Fracture in Adults (ED), ORIF of a Wrist Fracture (DC), Opioid Safety, Pain Management, Patient Portal & Jam Instructions Activity Restrictions/Additional Instructions: Your wrist fracture was reduced here in the emergency department and was splinted. Case management should be reaching out to you this week to help set you up with your follow-up orthopedic appointment as this most likely will require surgery. Please fill your pain medications and take them sparingly as needed for significant discomfort. Print Language: Venezuelan Coding Level of Care Code ED Rn Occupational Health for Ben Mcclure
[2025-08-14 14:30] VITALS: BP 111/71; PULSE 61; RESP 16; O2SAT 98
[2025-08-14 14:40] VITALS: BP 132/82; PULSE 53; O2SAT 100
[2025-08-14] MEDS: propofol 10 mg/mL SDV 20 mL 80 MG IVP (14:43)
--- NOTE | 2025-08-14 14:43 | XR_ITS ---
WS: [id number] Left wrist, AP and lateral views postreduction, 08/14/2025, 1444 hours Clinical Data: POST REDUCTION Comparison: Left wrist, 08/14/2025, 1335 hours Findings: The fracture of the distal left radius has been reduced. The dorsal displacement of the distal fracture fragment no longer appears. The simple ulnar styloid fracture is seen. XR/XR wrist LT 2V [id number] Impression: Reduction of distal left radial fracture.
[2025-08-14] MEDS: ondansetron 2 mg/ML SDV 2 mL 4 MG IVP (14:44)
[2025-08-14 14:55] VITALS: BP 129/78; PULSE 74; RESP 15; O2SAT 100
--- NOTE | 2025-08-14 15:05 | PC.NURSE ---
CONSCIOUS SEDATION PROPOFOL ADMINISTERED @1440 POST REDUCTION XRAY TAKEN @1445 POST REDUCTION VITALS @1455 HR 74, BP 129/78, O2 100 VIA NC 2L
[2025-08-14] MEDS: morphine 4 mg/mL SDV 1 mL IVP (15:36)
[2025-08-14 15:53] VITALS: BP 120/74; PULSE 71; O2SAT 99
--- NOTE | 2025-08-16 09:52 | DCPLANNER ---
Message sent to Ortho-Patient here for an angulated comminuted distal radial fracture following a trip and fall. Patient underwent conscious sedation and successful reduction of fracture. Consulted with Dr. Peña who recommends sugar-tong splint and follow-up in office as this most likely will require surgery. Please see Dr. Wayne's note for conscious sedation portion of examination. Extremity is neurovascularly intact before and after procedure.
== END 2025-08-14 15:54 | disposition home or self-care (01) ==
PROVIDERS: Emergency Provider Physician Assistant; PCP Family Medicine
DX: S52.502A Unspecified fracture of the lower end of left radius, initial encounter for closed fracture (principal); F17.210 Nicotine dependence, cigarettes, uncomplicated; W01.0XXA Fall on same level from slipping, tripping and stumbling without subsequent striking against object, initial encounter
CPT/HCPCS: 25605; 73100; 73110; 94799; 96372; 96374; 96375; 99156; 99285; J1885; J2270; J2405; J2704; J7030

== ENCOUNTER 2025-08-15 22:19 | Emergency (ER) | payer MEDICARE, SELFPAY ==
--- OUTSIDE RECORDS SUMMARY | 2024-04-30 04:00 | XMS_ITS ---
Author Organization [facility] Address [address] [place] [address] Care Team Providers Care Music Manager Name Role Phone RIYA LÓPEZ Primary Care Provider Unavailabl e Riya López Unavailable [phone] Migration, Provider Unavailable Unavailable REASON FOR VISIT EMR-David Encounters Encounter Location Date Provider Diagnosis Migrated_Facility 0 0 04/30/2024 Provider Migration Plan Of Treatment No Information Progress Notes * Hussein DE LA CRUZDOB:1979 (44 yo M)Acc No.[id number]:04/30/2024 Patient: Hussein WHITE :1980 A ge:43 Y S ex:Male Address:[address] [place] [address] Subjective: * Chief Complaints: * E MR-David * * Date:
--- OUTSIDE RECORDS SUMMARY | 2024-05-01 04:00 | XMS_ITS ---
Author Organization [facility] Address [address] [place] [address] Care Team Providers Care Dry Sand Molder Name Role Phone RENE RIYA Primary Care Provider Unavailabl Riya Davenport Unavailable [phone] Migration, Provider Unavailable Unavailable Allergies Allergen (clinical drug ingredient) Drug/Non Drug Allergy documented on EMR Reaction Allergy Type Onset Date Status codeine Codeine , Drug Allergy Active REASON FOR VISIT EMR-David Medications Medication SIG (Take, Route, Frequency, Duration) Notes Start Date End Date Status ropinirole 1 MG Oral Tablet *Reorder from [facility] for eRx and Interaction Alerts* 07/09/2023 10/07/2023 Active buspirone hydrochloride 15 MG Oral Tablet *Reorder from [facility] for eRx and Interaction Alerts* 07/09/2023 10/07/2023 Active Griseofulvin 500 MG Oral Tablet *Reorder from [facility] for eRx and Interaction Alerts* 07/09/2023 08/20/2023 Active Tamsulosin HCl 0.4 MG Capsule Oral 07/09/2023 07/03/2024 Active Pantoprazole Sodium 40 MG Tablet Delayed Release Oral 07/09/2023 07/03/2024 Active Ibuprofen 800 MG Oral Tablet *Reorder from [facility] for eRx and Interaction Alerts* 07/09/2023 12/30/2024 Active Citalopram 40 MG Oral Tablet *Reorder from [facility] for eRx and Interaction Alerts* 07/09/2023 10/07/2023 Active 60 ACTUAT Testosterone 20.25 MG/ACTUAT Topical Gel *Reorder from [facility] for eRx and Interaction Alerts* 07/09/2023 11/06/2023 [...] DE LA CRUZ JDOB:1979 (44 yo M)Acc No.[id number]:05/01/2024 Patient: Hussein WHITE :1980 A ge:43 Y S ex:Male Address:[address] [place], [place] [address], [facility] Subjective: * Chief Complaints: * E MR-David [...] date 10/07/2023, Notes to Pharmacist: *[facility]*ropinirole 1 MG Oral Tablet , stop date 10/07/2023, Notes to Pharmacist: *[facility]*Griseofulvin 500 MG Oral Tablet , stop date 08/20/2023, Notes to Pharmacist: *[facility] Interaction [facility]*60 ACTUAT Testosterone 20.25 MG/ACTUAT Topical Gel , stop date 11/06/2023, Notes to Pharmacist: *[facility]*Citalopram 40 MG Oral Tablet , stop date 10/07/2023, Notes to Pharmacist: *[facility]*Ibuprofen 800 MG Oral Tablet , stop date 12/30/2024, Notes to Pharmacist: *[facility] and Interaction Alert[facility]*Taking Pantoprazole Sodium 40 MG Tablet Delayed Release Oral , stop date 07/03/2024Taking Tamsulosin HCl 0.4 MG Capsule Oral , stop date 07/03/2024Taking buspirone hydrochloride 15 MG Oral Tablet , stop date 10/07/2023, Notes to Pharmacist: *Reorder from [facility] for eRx and Interaction Alerts*Taking ropinirole 1 MG Oral Tablet , stop date 10/07/2023, Notes to Pharmacist: *Reorder from [facility] for eRx and Interaction Alerts*Taking Griseofulvin 500 MG Oral Tablet , stop date 08/20/2023, Notes to Pharmacist: *Reorder from [facility] for eRx and Interaction Alerts*Taking 60 ACTUAT Testosterone 20.25 MG/ACTUAT Topical Gel , stop date 11/06/2023, Notes to Pharmacist: *Reorder from [facility] for eRx and Interaction Alerts*Taking Citalopram 40 MG Oral Tablet , stop date 10/07/2023, Notes to Pharmacist: *Reorder from [facility] for eRx and Interaction Alerts*Taking Ibuprofen 800 MG Oral Tablet , stop date 12/30/2024, Notes to Pharmacist: *Reorder from [facility] for eRx and Interaction Alerts* * Allergies: C odeine: , - Allergy * * Date:
[2025-08-15 22:30] VITALS: BP 133/84; PULSE 81; RESP 18; TEMP 37; O2SAT 98; BMI 19.9
--- OUTSIDE RECORDS SUMMARY | 2025-08-15 22:32 | XMS_ITS | Patient Health Record ---
Author Organization [facility] Address [address] [place] [address] Care Team Providers Care Receiving Manager Name Role Phone RENE RIYA Primary Care Provider Riya Vyas Unavailable [phone] Allergies Allergen (clinical drug ingredient) Drug/Non Drug [...] Date Status Comme nts Influenza (whole), CPT 77462 Inactive Unknown 08/29/2019 Administered Social History Tobacco [...] W/U Status Risk Notes Problem Testicular hypofunction (485322694) Testicular hypofunction (E29.1) Active confirmed Problem Low testosterone (267290722) Low testosterone (R79.89) Active confirmed Problem Dysthymia (25198591) Dysthymia (F34.1) Active confirmed Problem Restless legs (76400210) RLS (restless legs syndrome) (G25.81) Active confirmed Problem Anxiety depression (531585454) Anxiety with depression (F41.8) Active confirmed Problem Klinefelter syndrome (04919780) Klinefelter syndrome (Q98.4) Active confirmed Plan Of Treatment No Information Insurance Providers Payer Name Payer Address Payer Phone Subscriber Number Group Number Insured Name Patient Relationship to Insured Coverage Start Date Coverage End Date [employer] [address] [address] [place] [address] [id number] Hussein Kim Self - patient is the insured [place] Medicaid [address] [place] [address] [id number] Hussein Kim Self - patient is the [...]
--- OUTSIDE RECORDS SUMMARY | 2025-08-15 22:32 | XMS_ITS | Patient Health Record ---
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 Role Phone Jose Raul Schreiber Primary Care Provider PEMA Mar Unavailable [phone] Morgan Montgomery Unavailable Unavailable Allergies Allergen (clinical [...] ropinirole 1 MG Oral Tablet *Reorder from [employer] for eRx and Interaction Alerts* 06/28/2019 Active Citalopram Hydrobromide 40 MG TAKE 1 TABLET BY MOUTH DAILY; Duration: 30 Active 1250 MG Testosterone 0.0162 MG/MG Topical Gel 1250 MG Testosterone 0.0162 MG/MG Topical Gel *Reorder from [employer] for eRx and Interaction Alerts* 06/02/2019 Active busPIRone HCl 15 MG TAKE 1 TABLET BY MOUTH TWICE DAILY; Duration: 30 Active buspirone hydrochloride 15 MG Oral Tablet buspirone hydrochloride 15 MG Oral Tablet *Reorder from [employer] for eRx and Interaction Alerts* 07/05/2019 Active Tamsulosin hydrochloride 0.4 MG Oral Capsule Tamsulosin hydrochloride 0.4 MG Oral Capsule *Reorder from [employer] for eRx and Interaction Alerts* 06/28/2019 Active Immunizations Vaccine Route Administration Date Status Comme nts Influenza (whole), CPT 95912 Inactive Unknown 08/29/2019 Administered Problems Problem Type SNOMED Code ICD Code Onset Dates Problem Status W/U Status Risk Notes Problem Testicular hypofunction (663832767) Testicular hypofunction (E29.1) Active confirmed Problem Dysthymia (16597209) Dysthymia (F34.1) Active confirmed Problem Anxiety depression (711401563) Anxiety with depression (F41.8) Active confirmed Problem Restless legs (74296770) RLS (restless legs syndrome) (G25.81) Active confirmed Problem Klinefelter syndrome (77053751) Klinefelter syndrome (Q98.4) Active confirmed Problem Low testosterone (630863061) Low testosterone (R79.89) Active confirmed Plan Of Treatment No Information Insurance Providers Payer Name Payer Address Payer Phone Subscriber Number Group Number Insured Name Patient Relationship to Insured Coverage Start Date Coverage End Date [facility] [address] [address] [place], [place] [id number] Hussein Kim Self - patient is the insured [place] Medicaid [address] [place], [place] [id number] Hussein Kim Self - patient is the [...]
[2025-08-15 23:44] VITALS: BP 126/90; PULSE 84; O2SAT 100
--- NOTE | 2025-08-16 00:09 | W.ED.EXTPRO ---
HPI - Extremity Problem General: Chief complaint: Extremity Problem,Nontraumatic Stated complaint: Hands and broke arm are cold and numb Time Seen by Provider: 08/15/25 22:39 History of Present Illness: 44-year-old male status post left distal radius fracture presenting to the emergency department with numbness tingling and pain to the left arm, placed in sugar-tong yesterday, follow-up scheduled for 26 August with orthopedic surgery. Related Data Home Medications ?Medication ?Instructions ?Recorded ?Confirmed pantoprazole 40 mg tablet,delayed 40 mg PO DAILY PRN 12/29/24 02/16/25 release Previous Rx's ?Medication ?Instructions ?Recorded citalopram 40 mg tablet (Celexa) 40 mg PO DAILY #90 tabs 12/29/24 propranolol 10 mg tablet 10 mg PO BID #60 tabs 12/29/24 ropinirole 1 mg tablet 1 mg PO TID #270 tabs 12/29/24 tamsulosin 0.4 mg capsule (Flomax) 0.4 mg PO DAILY #90 caps 12/29/24 testosterone (AndroGel) 1 pump topical .AT BEDTIME #75 12/29/24 grams hydrocodone 5 mg-acetaminophen 325 1 tab PO Q6H PRN pain #14 tabs 08/14/25 mg tablet Allergies Allergy/AdvReac Type Severity Reaction Status Date / Time testosterone (From Androderm) Allergy redness at Verified 02/16/25 08:28 patch site codeine AdvReac makes me Verified 02/16/25 08:28 feel funny [facility] ED PFS: Medical History RLS (restless legs syndrome) BPH (benign prostatic hyperplasia) Ureteral calculus Lower urinary tract symptoms (LUTS) Urolithiasis Surgical History Status post surgery perianal fistulotomy Status post colonoscopy H/O esophagogastroduodenoscopy History of colon surgery colon abscess H/O lithotripsy History of orchiectomy, bilateral Family History Father No problems noted. Mother , at ag 70 Diabetes Social History Smoking and tobacco/nicotine status: current every day tobacco/nicotine user cigarettes Packs smoked per day: 1.5 [ Other cigarette details: 1 PPD, 26PY] Quit status (tobacco/nicotine): has tried quititng Second hand smoke exposure: No Alcohol intake: current Alcohol intake frequency: holidays/special occasions only Substance/Drug Use: current Substance/Drug use frequency: daily Adopted: No Caregiver/support person: Yes Lives independently: No Housing: House Marital status: Single Current occupational status: disabled Physical Exam Narrative: EXAM NARRATIVE: Gen: A&Ox4, no acute distress, nontoxic appearing HEENT: Normocephalic, atraumatic, no scleral icterus, external ears normal, moist mucous membranes Neck: Supple, full range of motion, no observable masses Lungs: No Respiratory distress, Lungs clear to auscultation bilaterally no rales, rhonchi, wheezing CV: Regular rate and rhythm, no murmur, no pitting edema to lower extremities bilaterally Abdomen: Soft, nondistended, nontender to palpation MSK: No joint swelling, FROM all 4 extremities, left upper extremity with a sugar-tong splint in place, the fingers are warm and well-perfused, cap refill intact to the distal fingertips, sensation intact, finger motion intact Skin: No rashes, petechiae, lesions. Normal color per patient. Neuro: Alert and oriented, no slurred speech, sensation and strength grossly intact all 4 extremities Psych: Appropriate for situation. Course Vital Signs: Vital signs: Vital Signs Temperature 98.6 F 08/15/25 22:30 Pulse Rate 84 08/15/25 23:44 Respiratory Rate 18 08/15/25 22:30 Blood Pressure 126/90 08/15/25 23:44 Pulse Oximetry 100 08/15/25 23:44 Oxygen Delivery Me thod Room Air 08/15/25 23:44 MDM - Extremity (Nontraumatic) Medical Decision Making 44-year-old male presenting with left upper extremity pain tingling and subjective numbness after sugar-tong placement, suspect inflammation induced given location, no concern for compartment syndrome, splint taken down and appeared to be appropriately positioned but new one placed for comfort, stable for discharge with outpatient follow-up to orthopedic surgery No radiology studies performed this visit Discharge Plan Discharge Patient Disposition: Home Clinical Impression: Closed fracture of distal end of left radius Condition: Stable Prescriptions: No Action tamsulosin [Flomax] 0.4 mg capsule 0.4 mg PO DAILY Qty: 90 3RF ropinirole 1 mg tablet 1 mg PO TID Qty: 270 3RF pantoprazole 40 mg tablet,delayed release (DR/EC) 40 mg PO DAILY PRN Celexa 40 mg tablet 40 mg PO DAILY Qty: 90 3RF propranolol 10 mg tablet 10 mg PO BID Qty: 60 1RF testosterone [AndroGel] 20.25 mg/1.25 gram (1.62 %) gel in metered-dose pump 1 pump topical .AT BEDTIME Qty: 75 3RF hydrocodone-acetaminophen 5-325 mg tablet 1 tab PO Q6H PRN (Reason: pain) Qty: 14 0RF Discharge Orders: Discharge ED (Routine); Ordered 08/16/25 Ordered By: Chris Cunningham Referrals: Osmani Underwood MD [Primary Care Provider, Family Practice] Patient Instructions: Opioid Safety, Pain Management, Patient Portal & Jam Instructions, Wrist Fracture in Adults (ED) Print Language: Uzbek Coding Level of Care Code ED Windows Systems Architect for Ben Mcclure
[2025-08-16 00:33] VITALS: BP 111/73; PULSE 60; O2SAT 98
== END 2025-08-16 00:46 | disposition home or self-care (01) ==
PROVIDERS: Emergency Provider Student in an Organized Health Care Education/Training Program; PCP Family Medicine
DX: S52.502D Unspecified fracture of the lower end of left radius, subsequent encounter for closed fracture with routine healing (principal); X58.XXXD Exposure to other specified factors, subsequent encounter; F17.210 Nicotine dependence, cigarettes, uncomplicated
CPT/HCPCS: 96372; 99284; J1885

== ENCOUNTER → 2025-08-28 14:13 | Outpatient (BNVA) | payer MEDICARE, SELFPAY | PROVIDERS: PCP Family Medicine; Visit Provider Orthopaedic Surgery | DX: S52.502A Unspecified fracture of the lower end of left radius, initial encounter for closed fracture (principal); W17.89XA Other fall from one level to another, initial encounter; Y93.H2 Activity, gardening and landscaping | CPT/HCPCS: 73110; 99204 ==

== ENCOUNTER → 2025-09-18 13:48 | Outpatient (BNVA) | payer MEDICARE, SELFPAY | PROVIDERS: PCP Family Medicine; Visit Provider Orthopaedic Surgery | DX: S52.502D Unspecified fracture of the lower end of left radius, subsequent encounter for closed fracture with routine healing (principal); X58.XXXD Exposure to other specified factors, subsequent encounter | CPT/HCPCS: 29075; 73110; 99213 ==

== ENCOUNTER → 2025-10-19 15:42 | Outpatient (BNVA) | payer MEDICARE, SELFPAY | PROVIDERS: PCP Family Medicine; Visit Provider Orthopaedic Surgery | DX: S52.502A Unspecified fracture of the lower end of left radius, initial encounter for closed fracture (principal); X58.XXXA Exposure to other specified factors, initial encounter | CPT/HCPCS: 29075; 73110; 99213 ==